=== PATIENT | male | born 1945 | race Caucasian/White ===

== ENCOUNTER → 2017-03-23 | Outpatient (CLI) | payer MEDICARE ==
[~2017-03-23] MED LIST: CASO1TAB PO; CIPR500S PO; LEVA750T PO; LUPRON; MAPA325T2 PO; MULT1TAB9 PO; OXYC-517 PO; PERCOCET PO; SMZ-800T PO; STOO100C PO; TUMS500C PO; TYLE650T35 PO
== END ==
LOC: M SMT 08:19
PROVIDERS: ATTEND Urology
DX: C61 Malignant neoplasm of prostate (principal)

== ENCOUNTER → 2017-09-21 | Outpatient (CLI) | payer MEDICARE ==
[~2017-09-21] MED LIST changes: -LEVA750T PO; +LEVA750T7 PO; -SMZ-800T PO; +SULF1TAB23 PO
== END ==
LOC: M SMT 08:33
PROVIDERS: ATTEND Nurse Practitioner Women's Health
DX: C61 Malignant neoplasm of prostate (principal)

== ENCOUNTER 2017-10-09 20:38 | Emergency (ER) | payer MEDICARE ==
[~2017-10-09] VITALS: Ht 170.2 cm; Wt 81.8 kg
[2017-10-09] MEDS ORDERED: IBUP-1114 PO (20:52)
[2017-10-09 22:33] VITALS: BP 145/84
--- NOTE | 2017-10-10 20:54 | REP ---
Left rib series: Five views. History: Pain after fall. Comparison chest x-ray August 11, 2016. Findings: Today's PA chest radiograph again demonstrates the two previously noted pulmonary nodules, unchanged from the July 2016 prior study. These are in the right lower and left upper lung field. There is another stable smaller nodule in the left base. Heart is not enlarged. Mediastinum is not widened. The aorta somewhat tortuous. There is no evidence of pneumothorax or hydrothorax on either side. Mediastinum is not widened. Multiple views of the left rib cage show no evidence of acute rib fracture or bony destructive lesion. There is left glenohumeral osteoarthritis and degenerative change in the region of the rotator cuff . There is an old healed fracture of the left posterior 9th rib unchanged. Impression: No acute rib fracture or bony destructive lesion. Multiple stable granulomatous nodules in the lung bagley. 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 Signed by Jeovanny Rogers MD 10/11/2017 08:08 A
== END 2017-10-09 22:39 | disposition home or self-care (01) ==
LOC: M ED 20:38
DX: S20.212A Contusion of left front wall of thorax, initial encounter (principal); W00.0XXA Fall on same level due to ice and snow, initial encounter; Y92.018 Other place in single-family (private) house as the place of occurrence of the external cause; Y93.89 Activity, other specified; Y99.8 Other external cause status; Z85.118 Personal history of other malignant neoplasm of bronchus and lung; Z88.0 Allergy status to penicillin

== ENCOUNTER → 2018-04-30 | Outpatient (CLI) | payer MEDICARE | LOC: M SMT 08:01 | DX: Z85.46 Personal history of malignant neoplasm of prostate (principal) | CPT/HCPCS: 84153 ==

== ENCOUNTER 2018-12-10 09:22 | Day surgery (SDC) | payer MEDICAID, MEDICARE ==
[~2018-12-10] VITALS: Ht 170.2 cm; Wt 78.0 kg
[~2018-12-10 09:22] MED LIST changes: -CASO1TAB PO; +CASO50TA5 PO; +IBUP-1114 PO; -SULF1TAB23 PO; +SULF1TAB93 PO
[2018-12-10] MEDS ORDERED: LIDOCAINE 2% INJ 100 MG/5 ML SDV (FOR ANES.) As Ordered ONE (10:29)
[2018-12-10] MEDS ORDERED: PROPOFOL 200 MG/20 ML VIAL As Ordered ONE (10:29)
[2018-12-10] MEDS ORDERED: NS 1,000 ML IV ONE (10:30)
--- NOTE | 2018-12-10 12:51 | ROOR ---
Patient Name: Ciro Maurer Procedure Date: 12/10/2018 11:58 AM Date of : 1945 Age: 73 Room: [facility] Gender: Male Note Status: Finalized Procedure: Colonoscopy Indications: Hematochezia Providers: Carl NEIL MD Referring MD: TIERA PACK MD Requesting Provider: Medicines: Monitored Anesthesia Care Complications: No immediate complications. Procedure: Pre-Anesthesia Assessment: - The heart rate, respiratory rate, oxygen saturations, blood pressure, adequacy of pulmonary ventilation, and response to care were monitored throughout the procedure. The Colonoscope was introduced through the anus and advanced to the terminal ileum, with identification of the appendiceal orifice and IC valve. The colonoscopy was performed without difficulty. The patient tolerated the procedure well. The quality of the bowel preparation was good. Findings: The perianal and digital rectal examinations were normal. A fungating partially obstructing large mass was found in the recto-sigmoid colon. The mass was circumferential. The mass measured five cm in length. This was biopsied with a cold forceps for histology. Two sessile polyps were found in the splenic flexure and ascending colon. The polyps were 5 to 7 mm in size. These polyps were removed with a cold snare. Resection and retrieval were complete. Internal hemorrhoids were found during retroflexion. The hemorrhoids were moderate. The exam was otherwise without abnormality on direct and retroflexion views. Impression: - Malignant appearing, partially obstructing tumor in the recto-sigmoid colon. (@ 18 to 23 cm from verge). Biopsied. - Two 5 to 7 mm polyps at the splenic flexure and in the ascending colon, removed with a cold snare. Resected and retrieved. - Internal hemorrhoids. Recommendation: - Await pathology results. - Refer to a surgeon at appointment to be scheduled. - Perform CT scan (computed tomography) of the abdomen with contrast at appointment to be scheduled. - My office will call you in the next few days to set you up for this study/exam. Carl Neil MD Carl NEIL MD 12/10/2018 12:50:37 PM This report has been signed electronically. Number of Addenda: 0 Note Initiated On: 12/10/2018 11:58 AM Estimated Blood Loss: Estimated blood loss: none.
[2018-12-10 13:15] VITALS: BP 142/82
== END 2018-12-10 13:26 | disposition home or self-care (01) ==
LOC: M OPP 09:22
PROVIDERS: ATTEND Internal Medicine Gastroenterology
DX: D49.0 Neoplasm of unspecified behavior of digestive system (principal); K56.690 Other partial intestinal obstruction; D12.3 Benign neoplasm of transverse colon; D12.2 Benign neoplasm of ascending colon; K64.8 Other hemorrhoids; K92.1 Melena; Z85.46 Personal history of malignant neoplasm of prostate; Z88.0 Allergy status to penicillin

== ENCOUNTER → 2018-12-16 | Outpatient (CLI) | payer MEDICARE ==
[~2018-12-16] MED LIST changes: +GASTROGRAFIN SOLUTION 30ML (Q9963) As Ordered ONE; +ISOVUE-370 76% 100ML VIAL (Q9967) As Ordered ONE
--- NOTE | 2018-12-16 18:27 | REP ---
Clinical: Rectosigmoid neoplasm. Technique: Axial contrast enhanced images from the lung bases to the pubic symphysis using oral (per protocol) and 100 ml Isovue 370 intravenous contrast material with precontrast and delayed images of the abdomen as well as coronal and sagittal re-formations. Comparison: 07/09/2014. Findings: Evaluation of the enteric system demonstrates a short length of circumferential mucosal thickening at the rectosigmoid junction with overhanging edges suggesting area of malignancy (images [id number]). Few adjacent lymph nodes are identified measuring up to 8.4 mm diameter and are nonspecific. No ascites. No further adenopathy appreciated. Scattered colonic diverticula are appreciated. There is no evidence for bowel obstruction. Liver, spleen, pancreas, gallbladder, and bilateral adrenal glands are normal. The kidneys demonstrate age-related cortical atrophic changes without perinephric stranding or hydroureteronephrosis. Incidental 1 cm right lateral cortical cyst is suggested (image 47). Pelvis demonstrates normal bladder and evidence for prior prostate surgery. Implanted penile device noted. Skeletal structures demonstrate osteopenia and degenerative changes without focal osseous abnormality. Lung bases demonstrate few scattered calcified granulomata. No effusion, consolidation, soft tissue nodule or mass lesion appreciated to suggest pulmonary metastatic disease. Impression: 1. Short segment of mucosal thickening involving the rectosigmoid consistent with neoplasm as per history. Few adjacent lymph nodes measure up to 8.4 mm and are nonspecific. 2. Colonic diverticulosis without acute diverticulitis. 3. Kidneys demonstrate cortical atrophic changes and suspected 1 cm right renal cyst which may be followed by ultrasound. 4. No further acute abdominopelvic pathology appreciated. Electronically Signed by Chente Yu MD 12/16/2018 06:18 P
== END ==
LOC: M RAD 16:26
PROVIDERS: ATTEND Internal Medicine Gastroenterology
DX: C19 Malignant neoplasm of rectosigmoid junction (principal); K57.90 Diverticulosis of intestine, part unspecified, without perforation or abscess without bleeding
CPT/HCPCS: 36415; 74178; 82378; Q9963; Q9967

== ENCOUNTER → 2018-12-16 | Outpatient (CLI) | payer MEDICARE ==
[~2018-12-16] MED LIST changes: -GASTROGRAFIN SOLUTION 30ML (Q9963) As Ordered ONE; -ISOVUE-370 76% 100ML VIAL (Q9967) As Ordered ONE
== END ==
LOC: M LAB 10:33
PROVIDERS: ATTEND Surgery
DX: C19 Malignant neoplasm of rectosigmoid junction (principal)

== ENCOUNTER 2019-01-07 06:07 | Inpatient (IN) | payer MEDICARE ==
--- NOTE | 2019-01-06 20:44 | HPE ---
DATE OF SCHEDULED ADMISSION: 01/07/2019 ADMISSION DIAGNOSIS: Rectosigmoid carcinoma. HISTORY OF PRESENT ILLNESS: The patient is a pleasant 73-year-old ramirez who had apparently noted some bloody and mucousy bowel movements for about 4 months. He denied any abdominal pain or rectal pain. He underwent a colonoscopy by Dr. Garcia on December 10, 2018. He was found to have what was described as a fungating, partially obstructing large mass in the rectosigmoid colon, estimated to be at 18-23 cm from the anal verge. The mass was reportedly circumferential. The mass was biopsied and revealed moderately differentiated colonic adenocarcinoma. The patient was referred to al for surgical treatment. A CEA was obtained on December 16, 2018 and was moderately elevated at 4.4 with a normal upper range of normal as less than 2.5. A CT scan of the abdomen and pelvis was also performed on December 16, 2018. This reveals a short segment of circumferential mucosal thickening at the rectosigmoid junction with overhanging edges suggesting malignancy. There were a few adjacent lymph nodes up to 8.4 mm in diameter that were felt to be nonspecific. There was no evidence of metastatic disease. Evidence of prior prostate surgery was noted as well as an implanted inflatable penile prosthesis. The patient and his were counseled regarding the treatment for upper rectal carcinoma. I have recommended that we proceed with a laparoscopic low anterior resection. The patient desires to proceed with the surgery and is being admitted on the morning of January 07, 2019 for a laparoscopic low anterior resection. MEDICATIONS: The patient (dictation cut off) Tums 500 mg tablets three daily. ALLERGIES: The patient has no reported allergies to medications. MEDICAL HISTORY: The patient had prostate cancer that was treated in 2013. He underwent a robotic radical prostatectomy. PAST SURGICAL HISTORY: The patient apparently underwent an endoscopic lung biopsy in 2013. He had right knee surgery in 1972 and had a right inguinal hernia repair in 1986. He had right shoulder surgery in 2004. His prostatectomy was in 2013, and he underwent placement of a penile implant in 2015. He has had ankle surgery on both ankles for fractures with the left treated in 1983 and the right treated in 1989. FAMILY HISTORY: His father had succumbed to prostate cancer, and his mother from lung cancer. He has a brother with prostate cancer and a sister who has diabetes and had anal cancer. 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 He is . He denies tobacco use or alcohol. REVIEW OF SYSTEMS: He has had no fever or chills. He has no history of chest pain or palpitations. There is no cough, wheezing or shortness of breath. He has had some rectal bleeding and has heartburn. He denies any constipation or diarrhea. There is no history of jaundice or hepatitis or pancreatitis. He denies any dysuria or hematuria, but he has had some mild occasional urinary leakage. He denies any bone or joint pains. He has no history of deep vein thrombosis (DVT) or pulmonary embolus. He has had no history of transient ischemic attack (TIA), stroke or severe headaches. He has no history of thyroid disease or diabetes. PHYSICAL EXAM: Reveals a pleasant older man. His height is recorded as 5 feet 7 inches with a weight of 82 kg for a body mass index (BMI) of approximately 28. Head, eyes, ears, nose and throat: Reveals anicteric sclerae. Mucous membranes are moist. The neck is without mass and there is no carotid bruit. Heart: Exam shows a regular rate and rhythm. The lungs are clear to auscultation bilaterally. The abdomen is generally flat. He has several small scars consistent with his prior robotic prostate surgery. A portion of his prosthesis is palpable low in the left lower quadrant in the subcutaneous tissues. Examination of the perineum shows no acute inflammation. There is one small external hemorrhoidal tag. Digital exam reveals no palpable lesions, and there is no evidence of anal stenosis. Skin: Is warm and dry. Extremities are without peripheral edema. IMPRESSION: 1. Moderately differentiated adenocarcinoma of the rectosigmoid. 2. History of prostate cancer treated by radical prostatectomy. PLAN: The patient is being admitted on January 07, 2019 for a laparoscopic low anterior resection. He is to perform a full mechanical and antibiotic bowel preparation utilizing neomycin and Flagyl on January 06, 2019. He was counseled regarding the indications for the procedure as well as the risks and possible benefits. Risks include but are not limited to bleeding, infection, scarring, adverse drug reaction, need for further surgery, injury of internal organs, anastomotic leak, and hernia. Both the patient and his were invited to ask questions at the time of his preoperative visit and these were answered to the best of my ability. The patient will be started on Entereg at the time of admission. He will receive intravenous antibiotics of cefotetan preoperatively. A Gracia catheter will be utilized during the surgery.
[2019-01-07] VITALS (7 sets, daily range): BP systolic 120–170; BP diastolic 67–84
[~2019-01-07] VITALS: Ht 170.2 cm; Wt 80.7 kg
[2019-01-07] MEDS ORDERED: ALVIMOPAN 12 MG CAPSULE (ENTEREG) PO ONE (06:30)
[2019-01-07] MEDS ORDERED: cefoTEtan DISODIUM 2 GM in D5W MINI-BAG PLUS 50 ML IV ONE (06:30)
[2019-01-07] MEDS ORDERED: METR-201 (06:41)
[2019-01-07] MEDS ORDERED: NEOM500T (06:41)
[2019-01-07] MEDS ORDERED: SUPRSOL2 (06:41)
[2019-01-07] MEDS ORDERED: LR 1,000 ML IV SCH ×2 (06:45→13:30)
[2019-01-07] MEDS ORDERED: ROCURONIUM BROMIDE 50 MG/5 ML VIAL As Ordered ONE ×2 (07:17→08:27)
[2019-01-07] MEDS ORDERED: PROPOFOL 200 MG/20 ML VIAL As Ordered ONE (07:17)
[2019-01-07] MEDS ORDERED: LIDOCAINE 2% INJ 100 MG/5 ML SDV (FOR ANES.) As Ordered ONE (07:17)
[2019-01-07] MEDS ORDERED: BUPIVACAINE HCL 0.25% 30 ML VIAL As Ordered ONE (07:18)
[2019-01-07] MEDS ORDERED: fentaNYL 100 MCG/2 ML INJECTION (J3010) As Ordered ONE (07:18)
[2019-01-07] MEDS ORDERED: MIDAZOLAM INJ 2 MG/2 ML VIAL (J2250) As Ordered ONE (07:18)
[2019-01-07] MEDS ORDERED: dexameTHASONE 4 MG/ML 1ML VIAL (J1100) As Ordered ONE (07:54)
[2019-01-07] MEDS ORDERED: ACETAMINOPHEN 1000MG 100ML IV BTL (OFIRMEV) (J0131 PER 10MG) As Ordered ONE (07:54)
[2019-01-07] MEDS ORDERED: ePHEDrine SULFATE 25 MG/5 ML(5MG/ML) SYRINGE As Ordered ONE (08:09)
[2019-01-07] MEDS ORDERED: HYDROmorphone HCL 2 MG/ML 1ML VIAL (J1170) As Ordered ONE (08:26)
[2019-01-07] MEDS ORDERED: GLYCOPYRROLATE INJ 0.2 MG/ML 2 ML VIAL As Ordered ONE (08:30)
[2019-01-07] MEDS ORDERED: METOPROLOL 5 MG/5 ML VIAL As Ordered ONE (09:06)
[2019-01-07] MEDS ORDERED: ONDANSETRON 4MG/2ML VIAL (J2405) As Ordered ONE (11:43)
[2019-01-07] MEDS: LR 1,000 ML IV SCH ×2 (12:33→22:48)
[2019-01-07] MEDS ORDERED: ACETAMINOPHEN TAB 650MG DOSE (2X325MG) PO PRN (12:45)
[2019-01-07] MEDS ORDERED: MORPHINE 4 MG/ML 1ML VIAL/SYRINGE (J2270) IV PRN (12:45)
[2019-01-07] MEDS ORDERED: ONDANSETRON 4MG/2ML VIAL (J2405) IV PRN ×2 (12:45→13:30)
[2019-01-07] MEDS ORDERED: NORCO, ANEXSIA 5/325MG TABLET (HYDROcodone/ACETAMINOPHEN) PO PRN (12:45)
[2019-01-07] MEDS ORDERED: oxyCODONE 5MG TAB PO PRN (13:30)
[2019-01-07] MEDS ORDERED: HYDROMORPHONE HCL 0.5 MG/ 0.5 ML SYRINGE (J1170 PER 1) IV PRN (13:30)
[2019-01-07] MEDS ORDERED: fentaNYL 100 MCG/2 ML INJECTION (J3010) IV PRN (13:30)
[2019-01-07] MEDS: KETOROLAC 30 MG/ML VIAL (J1885) IV PRN (16:03)
[2019-01-07] MEDS: ALVIMOPAN 12 MG CAPSULE (ENTEREG) PO SCH (20:09)
[2019-01-07] MEDS: ENOXAPARIN 40 MG/0.4 ML SYRINGE (J1650) SC SCH (20:10)
[2019-01-08] VITALS (7 sets, daily range): BP systolic 135–161; BP diastolic 60–82
[2019-01-08 06:45] LABS: BASO % 0.2 % (0.0-1.0); EOS % 0.1 % (0.0-3.0); HEMATOCRIT 40.7 % (42.0-52.0); HEMOGLOBIN 13.6 g/dl (13.5-17.5); LYMPH # 1.2 10^3/uL (1.5-4.5); LYMPH % 12.4 % (24.0-44.0); MEAN CORPUSCULAR HEMOGLOBIN 30.6 pg (27.0-33.0); MEAN CORPUSCULAR HGB CONC 33.4 g/dl (32.0-36.5); MEAN CORPUSCULAR VOLUME 91.5 fl (80.0-96.0); MONO # 0.9 10^3/uL (0.0-0.8); MONO % 8.8 % (0.0-5.0); NEUTROPHILS # 7.8 10^3/uL (1.8-7.7); NEUTROPHILS % 78.2 % (36.0-66.0); PLATELET COUNT, AUTOMATED 263 10^3/uL (150-450); RED BLOOD COUNT 4.45 10^6/uL (4.30-6.10); WHITE BLOOD COUNT 9.9 10^3/uL (4.0-10.0)
[2019-01-08 07:07] LABS: BLOOD UREA NITROGEN 14 MG/DL (7-18); CALCIUM LEVEL 8.5 MG/DL (8.8-10.2); CARBON DIOXIDE LEVEL 26 MEQ/L (21-32); CHLORIDE LEVEL 107 MEQ/L (98-107); CREATININE FOR GFR 0.97 MG/DL (0.70-1.30); GLOMERULAR FILTRATION RATE > 60.0 (>42); GLUCOSE, FASTING 102 MG/DL (70-100); SODIUM LEVEL 139 MEQ/L (136-145)
--- NOTE | 2019-01-08 08:30 | RO ---
DATE OF PROCEDURE: 01/07/2019 PREOPERATIVE DIAGNOSIS: Rectosigmoid carcinoma. POSTOPERATIVE DIAGNOSIS: Rectosigmoid carcinoma. PROCEDURE PERFORMED: Laparoscopic low anterior resection with colorectal anastomosis. SURGEON: Dr. Jones DOZER OPERATOR: Dr. Martinez SECOND SOLAR ENERGY TECHNICIAN: Bahman Leo MS III ANESTHESIA: General. INDICATIONS FOR PROCEDURE: The patient is a 73-year-old man who underwent colonoscopy in November due to a history of blood and mucus in his stool for several months. He was found to have a large mass in the region of the rectosigmoid extending over approximately 5 cm and extending nearly circumferentially around the lumen of the bowel. Biopsies revealed moderately differentiated adenocarcinoma. He underwent a metastatic workup with CT scan which revealed no evidence of metastatic disease. The patient is now for a laparoscopic low anterior resection. OPERATIVE PROCEDURE: The patient was brought to the operating room and placed supine on the operating table. He was placed under general endotracheal anesthesia. A Gracia catheter was inserted. He was moved into a low lithotomy position with the lower extremities in padded leg holders. TEDS and sequentials were utilized. A digital rectal examination was performed which revealed no retained stool and no palpable mass. The patient's abdomen was clipped of hair and prepped and draped sterilely. Initial entry into the abdomen was with a Veress needle in the right lower quadrant just below the level of the umbilicus and about the midclavicular line. After positive hanging drop test the abdomen was insufflated with carbon dioxide gas and a 5-mm port was placed over the scope and this was advanced through the abdominal wall without difficulty. Initial examination showed a few adhesions of the sigmoid colon to the left lower quadrant abdominal wall and anterior abdominal wall. The liver was seen and appeared normal other than a single adhesion to the anterior abdominal wall. Visualized portions of the small bowel all appeared normal. There was no evidence of any peritoneal studding of tumor. An 11 mm trocar was placed just above the umbilicus along the midline. A second 5 mm trocar was placed in the right lower quadrant fairly low. The patient was tilted to a Trendelenburg position. The small bowel was elevated up out of the pelvis. There were remarkably few adhesions given his previous radical prostatectomy. As noted previously, there were some adhesions of the sigmoid colon along the lateral wall of the lower abdomen. These adhesions were dressed. Initially, freeing the colon. Care was taken to avoid the left ureter. The proximal sigmoid colon was fairly redundant and there appeared to be an excellent length of bowel for reconstitution of the bowel continuity. A few adhesions little in the pelvis along the left side of the sigmoid colon were divided. It was possible then to pull the sigmoid colon up out of the pelvis and identify the location of tumor at the rectus sigmoid area. A mass was identified by palpation of the colon using a grasper. There was no evidence of involvement of the surface of the colon. There was a slight puckering noted along one side. I selected a point for the proximal transection of the colon to leave an excellent proximal margin up above the tumor but also leaving adequate length of colon for an anastomosis low in the pelvis. The bowel was divided using an echelon stapler after the right lower quadrant 5 mm port was converted to a 12-mm port. Once the bowel was divided the mesentery was divided down to its base. Dissection then proceeded distally, elevating the colon away from the retroperitoneum through the appropriate plane for a mesorectal excision. The fourth trocar was placed in the left upper quadrant to allow an additional grasper for manipulation of the colon as the dissection proceeded. Dissection proceeded then across the sacral promontory and then down along the hollow of the sacrum using primarily dissection with the harmonic scalpel. Dissection was continued down past the level of the tumor at least an additional 5-6 cm. The dissection was then carried up to the posterior wall of the rectum and after the wall had been adequately exposed the rectum was transected with two firings of the 60 cm echelon stapler with a green loads. The specimen was set aside for later removal. Some fibrofatty tissue at the posterior aspect of the rectal staple line was then dissected away to better expose the wall of the rectum. A few remaining attachments of the proximal colon were freed and it was confirmed that the proximal end of the colon would readily reach the rectal stump without any tension. An approximately 6-7 cm midline incision was made beginning at the 11 mm trocar site extending inferiorly around the right side of the umbilicus. The abdomen was deflated. A medium Mobius retractor was inserted. The colon specimen was removed. By palpation there is clearly a 4-5 cm long mass. There appeared to be in excellent mesorectal excision. There was 5-6 cm of distal rectal margin and approximately 15 cm of colon proximal to the tumor. There were no definite nodes palpable within the mesorectum. The specimen was sent for permanent pathology. The end of the sigmoid colon was then delivered through the abdominal wound. The staple line was removed. A 29-mm EEA stapler anvil was inserted into the end of the bowel and held in place with a pursestring suture of 2-0 Prolene. The end of the bowel was irrigated and then reduced back into the abdomen. The surgical team changed gown and gloves at this point and the midline incision was closed with interrupted simple sutures of #1 Vicryl. The skin and subcutaneous tissues were packed open with saline moistened gauze. The abdomen was then reinflated. The anvil of the stapler was grasped with the anvil grasper. The patient was repositioned into a deep head down position and the small bowel was removed from the pelvis. Dr. Martinez then went down to the perineum and initially advanced and EEA sizer into the rectum and then the stapler was advanced into the rectum and advanced to the level of the staple line. The post of the stapler was advanced just adjacent to the staple line at about at the midpoint. The anvil was attached and the stapler was then closed and fired and removed. Two intact doughnuts of tissue were recovered from the stapler. Dr. Martinez then returned to the abdomen and I proceeded to the perineum. The sigmoid colon was clamped with a bowel clamp and the deep pelvis was filled with saline. I inserted a colonoscope into the anus and advanced this to the level of the anastomosis. Air was insufflated and no air bubbles were seen leaking from the area of the anastomosis. I advanced the scope above the anastomosis and the bowel appeared healthy and viable with no bleeding at the staple line. I would estimate the staple line lay at approximately 10 cm above the anal verge. The colonoscope was removed. The patient was returned to a flat position. The irrigation was removed from the abdomen as thoroughly as possible. The 12-mm port in the right lower quadrant was removed and the peritoneum was closed using an Endoclose device with a 0 Vicryl. The two remaining 5 mm ports were used to vent the gas from the abdomen and these were then removed. The midline incision was approximated with some buried sutures of 3-0 Vicryl. The skin edges and all wounds were then approximated with simple or running sutures of 4-0 Vicryl and Steri-Strips. Light dressings were applied. The patient tolerated the procedure well without apparent complication. His Gracia catheter was removed in the operating room. He was awakened in the operating room, extubated and moved to the recovery room in stable condition.
[2019-01-08] MEDS: ALVIMOPAN 12 MG CAPSULE (ENTEREG) PO SCH ×2 (09:18→20:51)
[2019-01-08] MEDS: LR 1,000 ML IV SCH (09:18)
[2019-01-08] MEDS: ENOXAPARIN 40 MG/0.4 ML SYRINGE (J1650) SC SCH (20:52)
[2019-01-08] MEDS: KETOROLAC 30 MG/ML VIAL (J1885) IV PRN (22:45)
[2019-01-09] VITALS (7 sets, daily range): BP systolic 130–162; BP diastolic 71–94
[2019-01-09] MEDS: ALVIMOPAN 12 MG CAPSULE (ENTEREG) PO SCH ×2 (08:08→22:21)
--- NOTE | 2019-01-09 16:00 | IPN ---
DATE: 01/08/2019 HISTORY: Patient is postoperative day #1 from a laparoscopic low anterior resection for a rectosigmoid carcinoma. He has been taking some clear liquids since surgery. He is up in a chair at the time of this bedside visit. He has some abdominal soreness with movement, but otherwise has little discomfort. He denies any nausea or vomiting. He has not reported any flatus or bowel movement. He does report that he is voiding well. VITAL SIGNS: Show that his temperature has been within normal limits since surgery. His pulse has been running in the 50s to 60s. Blood pressure is good. INTAKE AND OUTPUT: Shows that he had 670 mL of oral intake yesterday. His voids have been recorded but not measured unfortunately. He appears to be taking adequate intake this morning based on the description of his breakfast intake. PHYSICAL EXAMINATION: Patient appears comfortable sitting up in a chair. He is alert and oriented. Heart exam shows a regular rhythm and the lungs are clear. Abdominal exam shows that his dressings are dry and clean. He has bowel sounds present on auscultation. LABORATORY STUDIES: Show that he had a CBC with a white count of 10, hemoglobin of 14, hematocrit of 41 and a platelet count of 263,000. His differential count showed 78% neutrophils, 12% lymphocytes and 9% monocytes. Chemistry profile showed normal electrolytes, BUN and creatinine with a glucose of 102. IMPRESSION: Patient is doing very well on postop day #1 from his colectomy. He has not had any return of bowel function but does have active bowel sounds and is tolerating clear liquids. PLAN: Patient will be advanced to a regular diet. I will saline lock his IV at this point as he appears to be taking adequate intake. We will continue to monitor his progress and I would anticipate that he would be ready for discharge in approximately 2 days. FLORENCE
--- NOTE | 2019-01-09 16:04 | IPN ---
DATE: 01/09/2019 HISTORY: The patient is now postoperative day number two from a laparoscopic low anterior resection for carcinoma. He has been tolerating regular food since yesterday. He has noted some flatus but has not yet had a bowel movement. He continues to void without difficulty. He has very little discomfort. He has been up ambulating in the hallway with his spouse. VITAL SIGNS: Show that he has been afebrile. Pulse remains in the high 50s to low 70s. Blood pressure is good. Intake and output shows that yesterday he had 2000 mL in with seven voids recorded but these were not measured. PHYSICAL EXAMINATION: Shows a pleasant man sitting up in the bedside chair. He is alert and oriented. Heart and lung examinations are unremarkable. The abdomen shows active bowel sounds. He has a small amount of blood staining on one or two of his dressings but this is minimal. The abdomen is soft and without any significant tenderness. IMPRESSION: The patient is doing very well postoperative day number two. He is tolerating a regular diet. He has had some flatus but no stool yet. PLAN: The patient was counseled that he is likely to have diarrhea and perhaps less bowel control once his bowel function returns. He will remain on his regular diet. He is encouraged to be up ambulating. We will continue to monitor his progress and I anticipate that he may be ready for discharge tomorrow or certainly by the following day. FLORENCE
[2019-01-09] MEDS: ENOXAPARIN 40 MG/0.4 ML SYRINGE (J1650) SC SCH (22:21)
[2019-01-10 02:00] VITALS: BP 154/89
[2019-01-10 06:00] VITALS: BP 158/90
[2019-01-10] MEDS: ALVIMOPAN 12 MG CAPSULE (ENTEREG) PO SCH (09:58)
== END 2019-01-10 11:58 | disposition home or self-care (01) | DRG 331 ==
LOC: M OR 06:07 → M MSPAV 13:36
PROVIDERS: ADMIT Surgery; ATTEND Surgery
PROC: 0DBP4ZZ Excision of Rectum, Percutaneous Endoscopic Approach (ICD-10-PCS; 2019-01-07)
PROC: 0DBN4ZZ Excision of Sigmoid Colon, Percutaneous Endoscopic Approach (ICD-10-PCS; principal; 2019-01-07 07:30)
DX: C19 Malignant neoplasm of rectosigmoid junction (principal); Z85.46 Personal history of malignant neoplasm of prostate

== ENCOUNTER → 2019-01-24 | Outpatient (CLI) | payer MEDICARE ==
[~2019-01-24] MED LIST changes: +METR-265; +NEOM500T; +SUPRSOL2
== END ==
LOC: M SMT 09:12
PROVIDERS: ATTEND Urology
DX: C61 Malignant neoplasm of prostate (principal)

== ENCOUNTER → 2019-04-30 | Outpatient (CLI) | payer MEDICARE ==
[~2019-04-30] MED LIST changes: +LUPR45IN IM; +MM S100C PO; -STOO100C PO
== END ==
LOC: M SMT 08:37
PROVIDERS: ATTEND Urology
DX: R97.21 Rising PSA following treatment for malignant neoplasm of prostate (principal)

== ENCOUNTER → 2019-08-01 | Outpatient (REF) | payer MEDICARE | LOC: M LAB REF 09:54 | PROVIDERS: ATTEND Urology | DX: R97.21 Rising PSA following treatment for malignant neoplasm of prostate (principal) ==

== ENCOUNTER → 2019-08-04 | Outpatient (CLI) | payer MEDICARE ==
[~2019-08-04] MED LIST changes: +GASTROGRAFIN SOLUTION 30ML (Q9963) As Ordered ONE; +ISOVUE-370 76% 100ML VIAL (Q9967) As Ordered ONE
--- NOTE | 2019-08-04 15:39 | REP ---
REASON FOR EXAM: History of colon cancer. Latest prior chest CT for comparison is 02/18/2016. CONTRAST: 100 mL Isovue 370. There is no mediastinal or hilar adenopathy. There are no pleural or pericardial effusions. The images osseous structures are within normal limits for the patient's age. Evaluation of the lung bagley shows an incidental calcified granuloma in the right lower lobe and tiny unchanged 3 mm size pleural based nodule in the right middle lobe. Curvilinear densities are also seen in the lung bases and inferior right middle lobe and all essentially unchanged. There is a stable left lower lobe calcified granuloma. This too is incidental. In the anterobasal segment of the left lower lobe there is a calcified granuloma previously, this nodule is noncalcified. There is a calcified granuloma in the left upper lobe and again, this previously was noncalcified. There are no new abnormal nodules, mass, or opacities. IMPRESSION: Chronic lung bagley changes and other findings as described above. Electronically Signed by Yovany Lizama DO 08/04/2019 04:05 P
--- NOTE | 2019-08-04 18:19 | REP ---
REASON: History of colon carcinoma. The latest prior for comparison is 07/16/2019. CONTRAST: 100 mL Isovue-370. For description of the lung bases see the CT examination of the chest report made the same day. The liver, gallbladder, spleen, pancreas, adrenal glands and kidneys are essentially unchanged. Note is again made of a stable pancreatic cyst which has been stable as far back as the CT of the abdomen of 07/09/2014 are also reviewed. There are tiny renal cortical cysts status quo. The renal cortex is somewhat thinned bilaterally but unchanged from the latest prior. No enhancing hepatic lesions have developed. The abdominal aorta and paraaortic regions are within normal limits. The bowel loops and their mesenteries are within normal limits. There is no intraabdominal mass or adenopathy. There is no free fluid or free air. CT PELVIS: A reservoir for a penile pump is seen in left anterior abdomen status quo. There is no free fluid or free air. Postoperative changes are seen involving the sigmoid colon. There is no evidence of a pelvis mass or adenopathy. Bone window technique throughout the examination shows marked chronic spinal degenerative changes and bilateral sacroiliac joint degenerative changes along with moderate bilateral hip degenerative changes all in a stable appearance compared to the latest prior. IMPRESSION:There is no evidence of acute intraabdominal or intrapelvic disease. Chronic changes and other findings as described above. Electronically Signed by Yovany Lizama DO 08/05/2019 02:13 P
== END ==
LOC: M RAD 11:07
PROVIDERS: ATTEND Internal Medicine Medical Oncology
DX: C61 Malignant neoplasm of prostate (principal)
CPT/HCPCS: 71260; 74177; Q9963; Q9967

== ENCOUNTER 2019-10-19 15:52 | Emergency (ER) | payer MEDICARE ==
[~2019-10-19] VITALS: Ht 170.2 cm; Wt 87.1 kg
[~2019-10-19 15:52] MED LIST changes: -GASTROGRAFIN SOLUTION 30ML (Q9963) As Ordered ONE; -ISOVUE-370 76% 100ML VIAL (Q9967) As Ordered ONE
[2019-10-19 16:58] LABS: BASO # 0.1 10^3/uL (0.0-0.2); BASO % 0.7 % (0.0-1.0); EOS # 0.1 10^3/uL (0.0-0.5); EOS % 1.1 % (0.0-3.0); HEMATOCRIT 44.5 % (42.0-52.0); HEMOGLOBIN 14.6 g/dl (13.5-17.5); LYMPH # 1.5 10^3/uL (1.5-5.0); MEAN CORPUSCULAR HEMOGLOBIN 30.8 pg (27.0-33.0); MEAN CORPUSCULAR HGB CONC 32.8 g/dl (32.0-36.5); MEAN CORPUSCULAR VOLUME 93.9 fl (80.0-96.0); NEUTROPHILS # 6.8 10^3/uL (1.5-8.5); NEUTROPHILS % 71.9 % (36.0-66.0); PLATELET COUNT, AUTOMATED 298 10^3/uL (150-450); RED BLOOD COUNT 4.74 10^6/uL (4.30-6.10); WHITE BLOOD COUNT 9.5 10^3/uL (4.0-10.0)
[2019-10-19 17:18] LABS: BLOOD UREA NITROGEN 20 MG/DL (7-18); CARBON DIOXIDE LEVEL 27 MEQ/L (21-32); CHLORIDE LEVEL 106 MEQ/L (98-107); CREATININE FOR GFR 0.91 MG/DL (0.70-1.30); GLOMERULAR FILTRATION RATE > 60.0 (>42); GLUCOSE, FASTING 84 MG/DL (70-100); POTASSIUM SERUM 3.9 MEQ/L (3.5-5.1); SODIUM LEVEL 141 MEQ/L (136-145); URIC ACID 3.7 MG/DL (3.5-7.2)
[2019-10-19 17:26] LABS: INFLUENZA A AMPLIFICATION NEGATIVE (NEGATIVE); INFLUENZA B AMPLIFICATION NEGATIVE (NEGATIVE)
[2019-10-19 18:34] VITALS: BP 151/79
--- NOTE | 2019-10-19 18:45 | REP ---
Clinical: Chest pain . Comparison: 08/11/2016 . Findings: The mediastinum and cardiac silhouette are stable and within normal limits for portable technique. The lung bagley are clear without acute consolidation, effusion, or pneumothorax. Skeletal structures are intact. Impression: No acute cardiopulmonary process appreciated. Electronically Signed by Chente Yu MD 10/19/2019 06:36 P
--- NOTE | 2019-10-19 18:47 | REP ---
Clinical: Pain. Technique: AP, lateral, bilateral oblique views of the right ankle. Comparison: None. Findings: Arthritic and post traumatic changes are appreciated including evidence for prior medial malleolus fixation. Small density adjacent to the medial malleolus likely related to the old injury although subtle avulsion fracture cannot be excluded and should be correlated with point of tenderness. No further acute fracture or dislocation appreciated. Impression: Arthritic and post traumatic degenerative changes. As above. Electronically Signed by Chente Yu MD 10/19/2019 06:38 P
== END 2019-10-19 18:51 | disposition home or self-care (01) ==
LOC: M ED 15:52
DX: J06.9 Acute upper respiratory infection, unspecified (principal); M25.571 Pain in right ankle and joints of right foot; M19.071 Primary osteoarthritis, right ankle and foot; I10 Essential (primary) hypertension; Z85.46 Personal history of malignant neoplasm of prostate; Z79.899 Other long term (current) drug therapy

== ENCOUNTER 2019-12-02 08:02 | Day surgery (SDC) | payer MEDICARE ==
[~2019-12-02] VITALS: Ht 165.1 cm; Wt 82.6 kg
[~2019-12-02 08:02] MED LIST changes: +ALEV220T22 PO; +MULTCAP PO; +NS 1,000 ML IV ONE
[2019-12-02] MEDS ORDERED: LIDOCAINE 2% INJ 100 MG/5 ML SDV (FOR ANES.) As Ordered ONE (09:35)
[2019-12-02] MEDS ORDERED: propofoL 200 MG/20 ML VIAL As Ordered ONE (09:35)
--- NOTE | 2019-12-02 10:11 | ROOR ---
Patient Name: Ciro Maurer Procedure Date: 12/02/2019 9:32 AM Date of : 1945 Age: 74 Room: [facility] Gender: Male Note Status: Finalized Procedure: Colonoscopy Indications: High risk colon cancer surveillance: Personal history of colon cancer, Last colonoscopy: December 2018, Patient had a low anterior resection for colorectal cancer in December 2018 Providers: Dain Jones MD Referring MD: TIERA PACK MD Requesting Provider: Medicines: Monitored Anesthesia Care Complications: No immediate complications. Procedure: Pre-Anesthesia Assessment: - Prior to the procedure, a History and Physical was performed, and patient medications and allergies were reviewed. The patient is competent. The risks and benefits of the procedure and the sedation options and risks were discussed with the patient. All questions were answered and informed consent was obtained. Patient identification and proposed procedure were verified by the physician, the nurse and the anesthesiologist in the procedure room. Mental Status Examination: alert and oriented. Prophylactic Antibiotics: The patient does not require prophylactic antibiotics. Prior Anticoagulants: The patient has taken no previous anticoagulant or antiplatelet agents. ASA Grade Assessment: II - A patient with mild systemic disease. After reviewing the risks and benefits, the patient was deemed in satisfactory condition to undergo the procedure. The anesthesia plan was to use monitored anesthesia care (MAC). Immediately prior to administration of medications, the patient was re-assessed for adequacy to receive sedatives. The heart rate, respiratory rate, oxygen saturations, blood pressure, adequacy of pulmonary ventilation, and response to care were monitored throughout the procedure. The physical status of the patient was re-assessed after the procedure. The Colonoscope was introduced through the anus and advanced to the cecum, identified by appendiceal orifice and ileocecal valve. The colonoscopy was performed without difficulty. The patient tolerated the procedure well. The quality of the bowel preparation was good. Findings: The perianal and digital rectal examinations were normal. There was evidence of a prior end-to-end colo-rectal anastomosis in the proximal rectum. This was patent and was characterized by healthy appearing mucosa. The anastomosis was traversed. The anastomosis was at 13-15 cm from the anal verge Impression: - Patent end-to-end colo-rectal anastomosis, characterized by healthy appearing mucosa. - No specimens collected. Recommendation: - Discharge patient to home. - Resume previous diet. - Continue present medications. - Repeat colonoscopy in 2 years for surveillance. Dain Jones MD Dain Jones MD 12/02/2019 10:11:08 AM Electronically signed by Dain Jones MD Number of Addenda: 0 Note Initiated On: 12/02/2019 9:32 AM Estimated Blood Loss: Estimated blood loss: none.
[2019-12-02 10:25] VITALS: BP 160/78
== END 2019-12-02 10:43 | disposition home or self-care (01) ==
LOC: M OPP 08:02
PROVIDERS: ATTEND Surgery
DX: Z85.038 Personal history of other malignant neoplasm of large intestine (principal); Z80.0 Family history of malignant neoplasm of digestive organs; Z98.0 Intestinal bypass and anastomosis status; Z08 Encounter for follow-up examination after completed treatment for malignant neoplasm; Z79.899 Other long term (current) drug therapy; Z85.46 Personal history of malignant neoplasm of prostate

== ENCOUNTER 2020-01-16 11:18 | Emergency (ER) | payer MEDICARE ==
[~2020-01-16] VITALS: Ht 165.1 cm; Wt 88.8 kg
[~2020-01-16 11:18] MED LIST changes: -NS 1,000 ML IV ONE
[2020-01-16 12:33] LABS: BASO # 0.1 10^3/uL (0.0-0.2); BASO % 0.8 % (0.0-1.0); EOS # 0.2 10^3/uL (0.0-0.5); HEMATOCRIT 43.7 % (42.0-52.0); HEMOGLOBIN 14.7 g/dl (13.5-17.5); LYMPH # 1.3 10^3/uL (1.5-5.0); LYMPH % 17.2 % (24.0-44.0); MEAN CORPUSCULAR HGB CONC 33.6 g/dl (32.0-36.5); MEAN CORPUSCULAR VOLUME 92.2 fl (80.0-96.0); MONO # 0.6 10^3/uL (0.0-0.8); MONO % 8.1 % (0.0-5.0); NEUTROPHILS # 5.5 10^3/uL (1.5-8.5); NEUTROPHILS % 70.6 % (36.0-66.0); PLATELET COUNT, AUTOMATED 292 10^3/uL (150-450); RED BLOOD COUNT 4.74 10^6/uL (4.30-6.10); WHITE BLOOD COUNT 7.8 10^3/uL (4.0-10.0)
[2020-01-16 12:51] LABS: ALBUMIN 3.5 GM/DL (3.2-5.2); ALT/SGPT 26 U/L (12-78); BILIRUBIN,DIRECT < 0.1 MG/DL (0.0-0.2); BILIRUBIN,TOTAL 0.5 MG/DL (0.2-1.0); BLOOD UREA NITROGEN 29 MG/DL (7-18); CALCIUM LEVEL 9.2 MG/DL (8.8-10.2); CARBON DIOXIDE LEVEL 29 MEQ/L (21-32); CHLORIDE LEVEL 105 MEQ/L (98-107); CK-MB VALUE MASS 3.6 NG/ML (<3.6); CPK CREATINE PHOSPHOKINASE 189 U/L (39-308); CREATININE FOR GFR 0.86 MG/DL (0.70-1.30); GLOMERULAR FILTRATION RATE > 60.0 (>42); GLUCOSE, FASTING 96 MG/DL (70-100); POTASSIUM SERUM 5.1 MEQ/L (3.5-5.1); SODIUM LEVEL 140 MEQ/L (136-145); TOTAL PROTEIN 7.1 GM/DL (6.4-8.2); TROPONIN I < 0.02 NG/ML (< 0.10)
[2020-01-16] MEDS ORDERED: ISOVUE-370 76% 100ML VIAL (Q9967) As Ordered ONE (13:08)
[2020-01-16 13:38] LABS: NT-PRO BNP 101 PG/ML (<125)
--- NOTE | 2020-01-16 13:46 | REP ---
REASON FOR EXAM: Chest pain. COMPARISON: Multiple, the latest 10/19/2019. FINDINGS: The technique utilized in obtaining the radiograph has magnified the cardiac silhouette and accentuated the interstitial markings. The superior mediastinal structures are midline. The cardiac silhouette is unremarkable in size, shape, and position. The diaphragmatic surfaces of the lungs are regular, and the costophrenic angles are clear. The pulmonary bagley are clear. The imaged osseous structures are intact. IMPRESSION: There is no acute cardiopulmonary disease. No significant change from the prior exam other than technique. It should be stated that the patient had a CT examination of the chest 08/04/2019 and all interested parties should review the report from that exam. Electronically Signed by Yovany Lizama DO 01/16/2020 03:12 P
--- NOTE | 2020-01-16 14:29 | REP ---
CT ANGIOGRAM CHEST: TECHNIQUE: Axial contrast enhanced images from the thoracic inlet to the upper abdomen using 100 mL Isovue 370 intravenous contrast material with multiplanar reformations. COMPARISON: CT 08/04/2019. There is no CT evidence of pulmonary embolism. There is no thoracic aortic aneurysm or dissection. Heart is not significantly enlarged. No mediastinal, hilar, or axillary adenopathy is seen. There is no pleural or pericardial effusion. There are bilateral calcified granulomas present. There are scattered fibroatelectatic change in the lung bases bilaterally. In the visualized upper abdomen there is a stable cyst in the pancreatic head 2.3 cm in diameter, unchanged dating back to a prior CT of the chest 07/17/2014. There are degenerative changes of the spine. IMPRESSION: No CT evidence of pulmonary embolism. Calcified granulomas bilaterally with bibasilar fibroatelectatic change. Stable pancreatic head cyst since 2013. Electronically Signed by Soren Gonsalez MD 01/16/2020 03:57 P
[2020-01-16 15:12] LABS: CK-MB VALUE MASS 3.1 NG/ML (<3.6); CPK CREATINE PHOSPHOKINASE 120 U/L (39-308); MB/CK RELATIVE INDEX 2.58 (< OR =4); TROPONIN I < 0.02 NG/ML (< 0.10)
[2020-01-16 16:00] VITALS: BP 160/79
[2020-01-16] MEDS ORDERED: HYDR12.55 PO (16:05)
--- NOTE | 2020-01-17 08:43 | ECGEPIP ---
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
--- NOTE | 2020-01-17 08:43 | ECGEPIP ---
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
== END 2020-01-16 16:18 | disposition home or self-care (01) ==
LOC: M ED 11:18
DX: S20.212A Contusion of left front wall of thorax, initial encounter (principal); R07.89 Other chest pain; R60.9 Edema, unspecified; W01.198A Fall on same level from slipping, tripping and stumbling with subsequent striking against other object, initial encounter; Y92.9 Unspecified place or not applicable; Y93.9 Activity, unspecified; Y99.9 Unspecified external cause status; Z85.46 Personal history of malignant neoplasm of prostate; Z85.038 Personal history of other malignant neoplasm of large intestine; Z79.899 Other long term (current) drug therapy
CPT/HCPCS: 71045; 71275; 80048; 80076; 82550; 82553; 83880; 84484; 85025; 93005; 93041; 94760; 99285; Q9967

== ENCOUNTER → 2020-06-29 | Outpatient (REF) | payer MEDICARE ==
[~2020-06-29] MED LIST changes: +ACET650T61 PO; +HYDR12.55 PO; -MAPA325T2 PO; +MAPA325T8 PO; +PERC5TAB12 PO; -TYLE650T35 PO; +XARE10TA PO
== END ==
LOC: M LAB REF 10:35
PROVIDERS: ATTEND Internal Medicine
DX: Z00.01 Encounter for general adult medical examination with abnormal findings (principal); R97.20 Elevated prostate specific antigen [PSA]

== ENCOUNTER → 2020-07-01 | Outpatient (CLI) | payer MEDICARE ==
[~2020-07-01] MED LIST changes: +GASTROGRAFIN SOLUTION 30ML (Q9963) As Ordered ONE; +ISOVUE-370 76% 100ML VIAL As Ordered ONE
--- NOTE | 2020-07-22 10:27 | REP ---
CONTRAST ENHANCED CHEST CT CLINICAL: Colon cancer surveillance. TECHNIQUE: Axial contrast enhanced images from the thoracic inlet to the upper abdomen using 100 mL Isovue-370 intravenous contrast material followed by CT of the abdomen and pelvis. Coronal and sagittal reformations obtained. COMPARISON: 08/04/2019. FINDINGS: The lung bagley are well-aerated and stable calcified granulomata are again identified bilaterally along with very small punctate noncalcified subpleural densities, which are unchanged as well. No acute consolidation, suspicious nodule, or mass lesion is appreciated. No pleural effusion. No pneumothorax. Tracheobronchial tree is patent. Evaluation of the mediastinum demonstrates a normal thoracic aorta, pulmonary vasculature, and heart/pericardium. Atherosclerotic changes to the coronary arteries noted. No axillary, hilar, or mediastinal adenopathy. Surrounding musculoskeletal structures are intact and without focal osseous abnormality. IMPRESSION: Stable granulomatous changes. No acute mediastinal or pleural parenchymal process. No evidence for metastatic disease. MTDD
--- NOTE | 2020-07-22 10:28 | REP ---
CONTRAST ENHANCED CT ABDOMEN AND PELVIS CLINICAL: Colon cancer. Follow-up surveillance. TECHNIQUE: Axial contrast enhanced images from the lung bases to the pubic symphysis using oral contrast (per protocol) and 100 mL Isovue-370 intravenous contrast material with coronal and sagittal reformations. COMPARISON: 08/04/2019. FINDINGS: Liver again demonstrates subcentimeter hypodensity in the left lobe, which remains stable. Spleen, gallbladder, and bilateral adrenal glands are normal. The kidneys demonstrate chronic cortical atrophy and stable 2 cm right renal cyst. The pancreas demonstrates stable 2 cm cyst in the proximal body, which remains stable. Evaluation of the enteric system is without obstruction or acute inflammatory process. There is evidence for prior resection and anastomosis at the level of the distal sigmoid colon, which is unchanged in appearance. Pelvis demonstrates normal bladder and findings to suggest prior prostate surgery. There is a reservoir for penile pump in the left anterior pelvic wall. Skeletal structures demonstrate chronic degenerative changes. No ascites. No free air. No adenopathy. Abdominal aorta without aneurysm or dissection. No obvious metastatic mass lesion. IMPRESSION: * No acute abdominopelvic pathology appreciated. No evidence for recurrence or metastasis. * Chronic stable changes including subcentimeter hepatic cyst, pancreatic cyst, age-related renal changes, and right renal cyst again noted. MTDD
== END ==
LOC: M RAD 11:25
PROVIDERS: ATTEND Internal Medicine Medical Oncology
DX: R91.8 Other nonspecific abnormal finding of lung field (principal); K76.89 Other specified diseases of liver; K86.2 Cyst of pancreas; N28.1 Cyst of kidney, acquired
CPT/HCPCS: 71260; 74177; Q9963; Q9967

== ENCOUNTER → 2020-07-16 | Outpatient (CLI) | payer MEDICARE ==
[~2020-07-16] MED LIST changes: -GASTROGRAFIN SOLUTION 30ML (Q9963) As Ordered ONE; -ISOVUE-370 76% 100ML VIAL As Ordered ONE
[2020-07-16 12:24] LABS: HEMATOCRIT 44.7 % (42.0-52.0); HEMOGLOBIN 14.9 g/dl (13.5-17.5); MEAN CORPUSCULAR HEMOGLOBIN 31.2 pg (27.0-33.0); MEAN CORPUSCULAR HGB CONC 33.3 g/dl (32.0-36.5); MEAN CORPUSCULAR VOLUME 93.7 fl (80.0-96.0); PLATELET COUNT, AUTOMATED 305 10^3/uL (150-450); RED BLOOD COUNT 4.77 10^6/uL (4.30-6.10); WHITE BLOOD COUNT 8.7 10^3/uL (4.0-10.0)
[2020-07-16 12:33] LABS: ALBUMIN 3.5 GM/DL (3.2-5.2); ALT/SGPT 25 U/L (12-78); BILIRUBIN,TOTAL 0.4 MG/DL (0.2-1.0); BLOOD UREA NITROGEN 26 MG/DL (7-18); CALCIUM LEVEL 9.3 MG/DL (8.8-10.2); CARBON DIOXIDE LEVEL 30 MEQ/L (21-32); CHLORIDE LEVEL 106 MEQ/L (98-107); CREATININE FOR GFR 0.97 MG/DL (0.70-1.30); GLOMERULAR FILTRATION RATE > 60.0 (>42); GLUCOSE, FASTING 96 MG/DL (70-100); INR 0.92; POTASSIUM SERUM 4.4 MEQ/L (3.5-5.1); PROTHROMBIN TIME 12.5 SECONDS (12.5-14.3); SODIUM LEVEL 141 MEQ/L (136-145); TOTAL PROTEIN 6.6 GM/DL (6.4-8.2)
[2020-07-16 13:39] LABS: ERYTHROCYTE SEDIMENTATION RATE 15 mm/hr (0-20)
--- NOTE | 2020-07-17 09:40 | ECGEPIP ---
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
--- NOTE | 2020-07-22 10:30 | REP ---
CHEST X-RAY: 2-VIEWS HISTORY: Osteoarthritis of the right knee. COMPARISON: Chest x-ray 01/16/2020. FINDINGS: There are granulomatous calcified pulmonary nodules bilaterally unchanged. The lungs are otherwise well-inflated and clear. Heart is not enlarged. The aorta is somewhat tortuous and calcific. There are degenerative changes in the thoracic spine as before. IMPRESSION: Old granulomatous calcifications. No acute disease. MTDD
== END ==
LOC: M LAB 11:32
PROVIDERS: ATTEND Orthopaedic Surgery
DX: Z01.818 Encounter for other preprocedural examination (principal); M17.11 Unilateral primary osteoarthritis, right knee; R94.31 Abnormal electrocardiogram [ECG] [EKG]; I45.19 Other right bundle-branch block

== ENCOUNTER → 2020-07-23 | Outpatient (CLI) | payer MEDICARE | LOC: M LABSMTC 10:04 | PROVIDERS: ATTEND Anesthesiology | DX: Z01.812 Encounter for preprocedural laboratory examination (principal); Z20.828 Contact with and (suspected) exposure to other viral communicable diseases | CPT/HCPCS: C9803; U0003 ==

== ENCOUNTER 2020-07-28 09:34 | Inpatient (IN) | payer MEDICARE ==
--- NOTE | 2020-07-26 11:31 | HPE ---
DATE OF ANTICIPATED ADMISSION: 07/28/2020 ATTENDING PHYSICIAN: Kwame Jane MD ADMITTING DIAGNOSIS: Osteoarthritis right knee. HISTORY: This is a pleasant, 75-year-old male patient with progressively worsening right knee pain and stiffness who has failed to improve with conservative management including injections in his knee and activity modifications. He has pain with weightbearing activities and activities of daily living. He has elected for surgery for his continued symptoms. He has been consented by Dr. Kwame Jane for a right total knee arthroplasty. X-rays notable for end-stage degenerative changes in the right knee. Medical optimization by Dr. Cristina not present for review today. ALLERGIES: No known drug allergies. CURRENT MEDICATIONS: - Tums 500 mg as needed - Eligard 45 mg once daily - daily multivitamins - Aleve [id number] We did discuss once again discontinuing his jako-pem-nurioot Aleve and any non- steroidal anti-inflammatory drugs (NSAIDs) 5 days prior to surgery to include aspirin. MEDICAL HISTORY: Includes: Prostate cancer, anxiety, and depression. SURGICAL HISTORY: Includes: Left ankle fracture, hernia repair, right shoulder decompression, prostate biopsy, prostate removal, colon resection. FAMILY HISTORY: Colon cancer, heart disease, cancer, elevated cholesterol. SOCIAL HISTORY: He does not smoke. He does not use alcohol. 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 Exam today reveals an alert male patient. He ambulates with a limping gait favoring his right knee. Exam of the right knee reveals his skin to be intact. No erythema, edema, or ecchymosis. The skin is intact around the knee. There is a well-healed prior surgical scar consistent with his history. He is able to flex to 110, extension is full. There is a small effusion on exam and no signs of infection around the knee. The right lower extremity is intact to light touch. No irritability with hip range of motion. Neck is supple without adenopathy or jugular venous distension (JVD). Lungs: Clear to auscultation without rales or wheeze. Heart: Regular rate and rhythm. Abdomen: Bowel sounds are present. PLAN: He is consented for a right total knee arthroplasty by Dr. Jane. DIAGNOSIS: Symptomatic osteoarthritis of the right knee. LABORATORY DATA: ProTime 12.5, INR 0.92, glucose 96, BUN 26, creatinine 0.97, sodium 141, potassium 4.4, ESR 15, WBC count 8.7, RBC count 4.7, hemoglobin 14.9, hematocrit 44.7. Chest x-ray is not present for review today. PLAN: We have reviewed his preoperative instructions and went over when to discontinue his non-steroidal anti-inflammatory drugs (NSAIDs) and when not to take NSAIDs, to include aspirin 5-7 days prior to surgery. Went over nothing by mouth and what nothing by mouth means. We talked about calling into the hospital 1 day prior, he has that phone number. He understands his pre- and postoperative instructions. He has a booklet that he has thoroughly reviewed. All of his questions are answered. He understands the reason for the COVID testing and once he is cleared with the COVID testing he needs to self- quarantine at home. FLORENCE
[~2020-07-28] VITALS: Ht 165.1 cm; Wt 88.9 kg
[~2020-07-28 09:34] MED LIST changes: +LR 1,000 ML IV ONE; -PERC5TAB12 PO; -XARE10TA PO; +ceFAZolin SOD 2 GM in IV 1 EA IV ONE
[2020-07-28] MEDS ORDERED: ePHEDrine INJ 50 MG/ML VIAL As Ordered ONE (10:50)
[2020-07-28] MEDS ORDERED: LIDOCAINE 2% 100MG/5ML SDV (FOR ANES.) As Ordered ONE (10:50)
[2020-07-28] MEDS ORDERED: ONDANSETRON 4MG/2ML VIAL As Ordered ONE (10:50)
[2020-07-28] MEDS ORDERED: MIDAZOLAM INJ 2MG/2ML VIAL (J2250 PER 1MG) As Ordered ONE ×2 (10:51→10:52)
[2020-07-28] MEDS ORDERED: propofoL 500 MG/50 ML VIAL As Ordered ONE (10:51)
[2020-07-28] MEDS ORDERED: KETAMINE HCL 200 MG/20 ML VIAL As Ordered ONE (10:52)
[2020-07-28] MEDS ORDERED: fentaNYL 100 MCG/2 ML INJECTION (J3010) As Ordered ONE (10:52)
[2020-07-28] MEDS ORDERED: ceFAZolin 1GM VIAL (J0690 PER 500MG) As Ordered ONE (10:54)
[2020-07-28] MEDS ORDERED: TRANEXAMIC ACID 100 MG/ML 10ML VIAL As Ordered ONE (10:55)
[2020-07-28] MEDS ORDERED: EPINEPHrine INJ 1 MG/ML 1ML AMP As Ordered ONE (10:55)
[2020-07-28] MEDS ORDERED: BUPIVACAINE LIPOSOME/PF 1.3% 20ML VIAL (13.3MG/ML)(EXPAREL)(C9290 PER1MG) As Ordered ONE (10:56)
[2020-07-28] MEDS: fentaNYL 100 MCG/2 ML INJECTION (J3010) IV SCH ×2 (11:18→11:23)
[2020-07-28] MEDS: MIDAZOLAM INJ 2MG/2ML VIAL (J2250 PER 1MG) IV SCH ×2 (11:18→11:23)
[2020-07-28] MEDS ORDERED: ROPIvacaine 0.5% 30ML INJECTION (J2795 PER 1MG) ONE (13:52)
[2020-07-28] MEDS ORDERED: LIDOCAINE 1% MDV 20ML VIAL ONE (13:52)
[2020-07-28] MEDS ORDERED: dexameTHASONE 10MG/1ML VIAL PRES.FREE (J1100 PER 1MG) ONE (13:52)
[2020-07-28] MEDS ORDERED: oxyCODONE 5MG TAB As Ordered ONE (14:20)
[2020-07-28] MEDS ORDERED: ACETAMINOPHEN TAB 650MG DOSE (2X325MG) PO PRN (14:30)
[2020-07-28] MEDS ORDERED: ONDANSETRON 4MG/2ML VIAL IV PRN ×2 (14:30)
[2020-07-28] MEDS ORDERED: PERCOCET 5MG/325MG TAB PO PRN (14:30)
[2020-07-28] MEDS ORDERED: MORPHINE 4 MG/ML 1ML VIAL/SYRINGE (J2270) IV PRN ×2 (14:30)
[2020-07-28] MEDS ORDERED: oxyCODONE 5MG TAB PO PRN (14:30)
[2020-07-28] MEDS ORDERED: LR 1,000 ML IV SCH ×2 (14:30)
[2020-07-28] MEDS ORDERED: fentaNYL 100 MCG/2 ML INJECTION (J3010) IV PRN (14:30)
[2020-07-28 16:00] VITALS: BP 144/86
--- NOTE | 2020-07-28 16:06 | HPEPDOC ---
General Date of Admission Jul 28, 2020 at 09:34 Date of Service: Jul 28, 2020 Chief Complaint The patient is a 75-year-old male admitted with a reason for visit of Osteoarthritis Of Right Knee. Source: Patient History of Present Illness Consultation Report. Consultation requested by Dr Jane HPI: 75-year-old male patient with progressively worsening right knee pain and stiffness who has failed to improve with conservative management including injections in his knee and activity modifications was admitted for elective right total knee replacement. Hospitalist was consulted for management of medical comorbidities. Seen in PACU. Just out of the OR. Denies any pain at present. Home Medications Scheduled Calcium Carbonate (Tums) 200 Mg Tab.chew, 2 TAB PO QIDP, (Reported) Multivitamin (Multivitamins) 1 Each Capsule, 1 CAP PO DAILY, (Reported) Naproxen Sodium (Aleve) 220 Mg Tablet, 220 MG PO BID, (Reported) Allergies Coded Allergies: No Known Allergies (Unverified , 07/21/20) Past Medical History Medical History Chronic urinary incontinence Prostate cancer, anxiety, and depression GERD Hard of Hearing. Surgical History Left ankle fracture surgery, hernia repair, right shoulder decompression, prostate biopsy, prostate removal, colon resection. Family History Colon cancer, heart disease Social History * Smoker: non-smoker Alcohol: Denies Drugs: denies A-FIB/CHADSVASC A-FIB History Current/History of A-Fib/PAF?: No Review of Systems Constitutional: Denies: Chills, Fever, Night Sweats Eyes: Denies: Pain, Vision change ENT: Denies: Head Aches, Ear Pain, Dysphagia Skin: Denies: Rash, Lesions, Breakdown Pulmonary: Denies: Dyspnea, Cough Cardiovascular: Denies: Chest Pain, Palpitations, Orthopnea, Paroxysmal Noc. Dyspnea, Lt Headedness Gastrointestinal: Denies: Nausea, Vomiting, Abdominal Pain, Diarrhea Genitourinary: Reports: Incontinence Hematologic: Denies: Bruising, Bleeding Excessively Physical Examination General Exam: Positive: Alert, Cooperative, No Acute Distress Eye Exam: Positive: PERRLA, Conjunctiva & lids normal, EOMI; Negative: Sclera icteric ENT Exam: Positive: Atraumatic, Mucous membr. moist/pink, Pharynx Normal Neck Exam: Positive: Supple; Negative: JVD, thyromegaly Chest Exam: Positive: Clear to auscultation, Normal air movement Heart Exam: Positive: Bradycardic, Regular Rhythm, Normal S1, Normal S2; Negative: Murmurs, Rubs Telemetry: Positive: Sinus, Bradycardia Abdomen Exam: Positive: Normal bowel sounds, Soft; Negative: Tenderness, Hepatospenomegaly Extremity Exam: Positive: Normal pulses; Negative: Clubbing, Cyanosis, Edema Vital Signs Vital Signs Date Time Temp Pulse Resp B/P (MAP) Pulse Ox O2 Delivery O2 Flow Rate FiO2 07/28/20 12:00 69 18 144/87 (106) 100 Nasal Cannula 2 07/28/20 10:24 97.5 Assessment/Plan 75-year-old male patient with progressively worsening right knee pain and stiffness who has failed to improve with conservative management including injections in his knee and activity modifications was admitted for elective right total knee replacement. Hospitalist was consulted for management of medical comorbidities. S/p right total knee replacement pain control as per ortho, DVT prophylaxis as per ortho. PT/OT H/o prostatectomy for prostate cancer with chronic urinary incontinence. No other medical issues at present. Plan / VTE VTE Prophylaxis Ordered?: Yes LUIZ ALMANZA MD Jul 28, 2020 14:17
[2020-07-28 17:00] VITALS: BP 143/85
[2020-07-28 18:00] VITALS: BP 134/83
[2020-07-28 20:00] VITALS: BP 156/86
[2020-07-28] MEDS: ceFAZolin SOD 2 GM in IV 1 EA IV SCH (21:15)
[2020-07-28 22:00] VITALS: BP 146/81
[2020-07-29 02:00] VITALS: BP 133/80
[2020-07-29] MEDS: ceFAZolin SOD 2 GM in IV 1 EA IV SCH (04:41)
[2020-07-29 06:00] VITALS: BP 155/86
[2020-07-29] MEDS ORDERED: XARE10TA PO (06:53)
[2020-07-29] MEDS ORDERED: PERC5TAB12 PO (06:53)
[2020-07-29 07:40] LABS: HEMATOCRIT 37.1 % (42.0-52.0); HEMOGLOBIN 12.6 g/dl (13.5-17.5); MEAN CORPUSCULAR HEMOGLOBIN 31.6 pg (27.0-33.0); PLATELET COUNT, AUTOMATED 317 10^3/uL (150-450); RED BLOOD COUNT 3.99 10^6/uL (4.30-6.10)
[2020-07-29] MEDS ORDERED: MOM 30ML SUSPENSION UDC PO SCH (09:00)
[2020-07-29] MEDS ORDERED: MIRALAX *UNIT DOSE* 17GM PACKET PO SCH (09:00)
[2020-07-29 10:00] VITALS: BP 145/86
[2020-07-29] MEDS ORDERED: RIVAROXABAN 10 MG TAB (XARELTO) PO SCH (18:00)
--- NOTE | 2020-07-30 11:06 | IPN ---
DATE: 07/28/2020 Patient is seen and examined. He wishes to go ahead with a right knee arthroplasty. He understands the nature of this, the risks of bleeding, infection, damage to nerves, vessels, persistent pain, wear, loosening, blood clots, medical problems, , among others. Preoperative clearance was obtained. We are planning on proceeding with a right knee arthroplasty. FLORENCE
--- NOTE | 2020-07-30 11:08 | RO ---
DATE OF OPERATION: 07/28/2020 PREOPERATIVE DIAGNOSIS: Right knee osteoarthritis. POSTOPERATIVE DIAGNOSIS: Right knee osteoarthritis. PROCEDURE: Right total knee arthroplasty using an Attune rotating platform, posterior stabilized size 5 femur, size 7 tibial tray, and a 10 polyethylene, 38 patellar button. SURGEON: Dr. Kwame Jane MD PLAN MANAGER: DAYTON Magana ANESTHESIA: Spinal. ESTIMATED BLOOD LOSS: Less than 50. COMPLICATIONS: None. DESCRIPTION OF PROCEDURE: Patient was taken to the operating room and placed in the supine position after spinal anesthesia was induced. The right lower extremity was prepped and draped in the usual sterile fashion. A time-out was performed. Tourniquet inflated. A longitudinal incision was made over the anterior aspect of the knee, and a medial parapatellar arthrotomy was performed per routine. Controlled hemostasis with a cautery. Everted the patella, flexed the knee up. I had done a medial release as well and used a canal-initiating reamer on the femoral side followed by the intramedullary guide set at 5 degrees of valgus, 9 mm cut. This was pinned in place. Then the distal femoral cut was made, but I did take an additional 2 mm because of the appearance of the cut and because he had a mild flexion contracture. I then sized the femur to be a 5. Drill holes were placed in the end of the femur, and the size 5 cutting block was secured. The remaining cuts were made, protecting soft tissues at all times. I then prepared the tibial surface. He had significant dishing of both medial and lateral tibial plateaus, so I ended up taking 6 mm off of the medial side, which seemed to be an appropriate size cut. The alignment guide was set. The pin holes were placed, and the external alignment guide was used to confirm the alignment. Proximal tibial cut was made. Removed the bone. I removed soft tissue and osteophytes from either side of the knee, and the posterior cruciate ligament (PCL) was essentially deficient at this point, so I elected to go with a posterior stabilize, which I had anticipated. The cutting block was secured to the femur, and the remaining three cuts were made, and the remaining PCL was removed with the cautery. Care was taken to protect soft tissues. I then used a spacer block and determined that a size 10 seemed to be the most appropriate and had excellent alignment and balance in flexion and extension. Tibial tray was prepared. It was sized to be a 7. It was drilled, broached, and the trial components were placed, and I was very pleased with the alignment position of the trial components. The size 10 polyethylene seemed to be appropriate. The patella was then free-hand cut, removing 7-8 mm of bone. I sized it to be a 38. The drill holes were placed in the patella and also in the femur, and the patella button was placed. This tracked very nicely. The sugar laboratory assistant prepared the bone cement. I removed the trial components, irrigated, injected the Exparel in the deep tissues, dried the bony surfaces, and then cemented in the components in the usual fashion, removing all excess bone cement, and placed the polyethylene. The wound was then irrigated after TXA was placed deep in the wound, and the deep layer was closed with interrupted #1 Vicryl suture and running Stratafix. I removed the patellar clamp once the cement had hardened. I put the knee through a range of motion. The patella tracked very nicely. There was no clicking or catching. The remainder of the wound was closed after final deep irrigation. I then closed the subcutaneous with 2-0 Vicryl and the skin with rishabh. Sterile dressing was applied. Tourniquet had been deflated when the cement hardened. The sugar laboratory assistant was instrumental in holding retractors and assisting in mixing the bone cement and assisting in wound closure. FLORENCE
--- NOTE | 2020-08-02 16:39 | REP ---
RIGHT KNEE SERIES: 3-VIEWS HISTORY: Status post total right knee. FINDINGS: Anterior skin rishabh are seen. Patellar, femoral, and tibial prosthetic components are well aligned with respect to each other and their lumbee bones. There is periarticular and intraarticular soft tissue gas. On the front radiograph, there are severe ossific densities at the medial joint line. IMPRESSION: Status post right knee arthroplasty. FLORENCE
--- NOTE | 2020-08-04 15:57 | DS ---
DATE OF ADMISSION: 07/28/2020 DATE OF DISCHARGE: 07/29/2020 ATTENDING PHYSICIAN: Dr. Kwame Jane ADMITTING DIAGNOSIS: Right knee osteoarthritis. OTHER DIAGNOSES: 1. History of prostate cancer. 2. Anxiety. 3. Depression. DISCHARGE DIAGNOSIS: Right knee osteoarthritis, status post right total knee arthroplasty. HISTORY: Patient is a 75-year-old male with progressively worsening right knee pain and stiffness. He failed to improve with conservative measures. He continued to have with weightbearing activities and activities of daily living. He consented for an elective right total knee arthroplasty with Dr. Jane for his continued symptoms. OPERATION PERFORMED: Right total knee arthroplasty. HOSPITAL COURSE: The patient underwent a right total knee arthroplasty under spinal anesthesia, which was uneventful. His hospital course was without complication, and he was up with physical therapy per their protocol, weightbearing as tolerated on the right lower extremity. Patient was discharged on oral pain medications and will resume his preoperative medications and diet. Patient will use his thromboembolic deterrent stockings and take his anticoagulant postoperatively to prevent deep venous thrombosis. Patient will followup in our office in 12-14 days for wound check and staple removal. He is encouraged to contact our office sooner if there is any increase in pain, redness, drainage, numbness or tingling in the extremity, fever greater than 101 degrees, or any other concerns. Please see medical record for additional details. FLORENCE
== END 2020-07-29 11:05 | disposition home or self-care (01) | DRG 470 ==
LOC: M OR 09:34 → M MS5PR 15:20
PROVIDERS: ADMIT Orthopaedic Surgery; ATTEND Orthopaedic Surgery
PROC: 0SRC0J9 Replacement of Right Knee Joint with Synthetic Substitute, Cemented, Open Approach (ICD-10-PCS; principal; 2020-07-28 11:45)
DX: M17.11 Unilateral primary osteoarthritis, right knee (principal); F41.9 Anxiety disorder, unspecified; F32.9 Major depressive disorder, single episode, unspecified; Z85.46 Personal history of malignant neoplasm of prostate; K21.9 Gastro-esophageal reflux disease without esophagitis

== ENCOUNTER 2021-03-18 13:34 | Observation (INO) | payer MEDICARE ==
[~2021-03-18] VITALS: Ht 165.1 cm; Wt 86.5 kg
[~2021-03-18 13:34] MED LIST changes: +ACET-897 PO; +BACTDSTA PO; -LR 1,000 ML IV ONE; +PERC5TAB12 PO; -SULF1TAB93 PO; +XARE10TA PO; -ceFAZolin SOD 2 GM in IV 1 EA IV ONE
[2021-03-18] MEDS ORDERED: NAPR220C23 PO (13:47)
--- NOTE | 2021-03-18 14:24 | REP ---
INDICATION: DYSPNEA/COUGH COMPARISON: 07/16/2020 TECHNIQUE: Portable AP view of the chest FINDINGS: The mediastinum and cardiac silhouette are stable and within normal limits for portable technique. The lung bagley are clear without acute consolidation, effusion, or pneumothorax. Stable subtle nodule in the periphery of the right lower lung zone and left lower lung zone. Skeletal structures are intact. IMPRESSION: No acute cardiopulmonary process appreciated. <Electronically signed by Chente Yu > 03/18/21 [id number]
[2021-03-18 14:51] LABS: VENOUS BASE EXCESS 0.1 (-2.0-2.0); VENOUS HCO3 26.2 MEQ/L (23.0-27.0); VENOUS O2 SATURATION 48.4 % (60.0-80.0); VENOUS PARTIAL PRESSURE O2 26.3 mmHg (30.0-50.0); VENOUS PH 7.355 UNITS (7.330-7.430); VENOUS STANDARD HCO3 23.3 MEQ/L; VENOUS TOTAL CO2 27.7 MEQ/L (24.0-28.0)
[2021-03-18 14:57] LABS: BASO % 0.2 % (0.0-1.0); EOS % 0.3 % (0.0-3.0); HEMATOCRIT 44.2 % (42.0-52.0); HEMOGLOBIN 14.7 g/dl (13.5-17.5); LYMPH # 1.1 10^3/uL (1.5-5.0); LYMPH % 9.3 % (24.0-44.0); MEAN CORPUSCULAR HEMOGLOBIN 30.4 pg (27.0-33.0); MEAN CORPUSCULAR HGB CONC 33.3 g/dl (32.0-36.5); MEAN CORPUSCULAR VOLUME 91.3 fl (80.0-96.0); MONO # 0.8 10^3/uL (0.0-0.8); MONO % 6.8 % (2.0-8.0); PLATELET COUNT, AUTOMATED 261 10^3/uL (150-450); RED BLOOD COUNT 4.84 10^6/uL (4.30-6.10); WHITE BLOOD COUNT 12.1 10^3/uL (4.0-10.0)
[2021-03-18 15:28] LABS: BILIRUBIN,DIRECT 0.1 MG/DL (0.0-0.2); BILIRUBIN,TOTAL 0.4 MG/DL (0.2-1.0); THYROID STIMULATING HORMONE 1.28 uIU/ML (0.358-3.740); TOTAL PROTEIN 6.7 GM/DL (6.4-8.2)
[2021-03-18 15:29] LABS: RSV AMPLIFICATION NEGATIVE (NEGATIVE)
[2021-03-18] MEDS ORDERED: ISOVUE-370 76% 100ML VIAL As Ordered ONE (15:32)
--- NOTE | 2021-03-18 15:58 | REP ---
INDICATION: sob r/o pe COMPARISON: 01/16/2020 TECHNIQUE: Axial contrast enhanced images from the thoracic inlet to the upper abdomen using pulmonary embolus technique with multiplanar re-formations. 75 ml Isovue 370 intravenous contrast material administered without complication. This CT examination was performed using the following dose reduction techniques: Automated exposure control, adjustment of mA and/or kv according to the patient's size, and use of iterative reconstruction technique. FINDINGS: Satisfactory enhancement of the pulmonary vasculature is achieved and no filling defects are identified to suggest pulmonary embolus. The lung bagley demonstrate subtle scattered acute "tree in bud" opacities primarily noted to the bilateral lower lobes, right middle lobe and basilar right upper lobe which suggest a subtle acute multifocal pneumonia. Chronic underlying interstitial changes and scattered calcified granulomata identified. Further evaluation of the mediastinum demonstrates atherosclerotic changes to the thoracic aorta and coronary arteries without aortic aneurysm or dissection. No cardiomegaly or pericardial effusion. No significant adenopathy. Thyroid gland is grossly normal. Surrounding musculoskeletal structures demonstrate age-related osteopenia and degenerative changes. Limited upper abdomen demonstrates stable 2.5 cm cyst in the mid pancreatic body which appears similar but slightly increased in size when compared with abdominal CT examinations through 2014. IMPRESSION: No evidence for pulmonary embolus. Very subtle acute multifocal infiltrates consistent with pneumonia. <Electronically signed by Chente Yu > 03/18/21 [id number]
[2021-03-18] MEDS ORDERED: cefTRIAXone SOD 1 GM in D5W MINI-BAG PLUS 50 ML IV ONE (16:20)
[2021-03-18] MEDS ORDERED: AZITHROMYCIN INJ 500 MG, VIAL MATE ADAPTER 1 EACH in NS 250 ML IV ONE (16:20)
[2021-03-18] MEDS ORDERED: ACETAMINOPHEN TAB 650MG DOSE (2X325MG) PO PRN (16:55)
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
[2021-03-18] MEDS ORDERED: [UNRECOGNIZED DRUG - CODE] PO (17:25)
[2021-03-18] MEDS: predniSONE 20 MG TAB PO SCH (18:13)
[2021-03-18] MEDS: FUROSEMIDE 40MG/4ML VIAL (J1940) IV SCH (18:14)
[2021-03-18 20:25] VITALS: BP 132/81
[2021-03-18] MEDS ORDERED: ENOXAPARIN 40MG/0.4ML SYRINGE (J1650 PER 10MG) SC SCH (21:00)
[2021-03-18] MEDS: IPRATROPIUM 0.5MG/ALBUTEROL 2.5MG INH SOL UD 3ML (DUONEB) INH SCH (21:15)
[2021-03-19] MEDS: IPRATROPIUM 0.5MG/ALBUTEROL 2.5MG INH SOL UD 3ML (DUONEB) INH SCH ×5 (00:07→15:40)
[2021-03-19 06:16] LABS: HEMATOCRIT 43.4 % (42.0-52.0); HEMOGLOBIN 14.4 g/dl (13.5-17.5); MEAN CORPUSCULAR HEMOGLOBIN 30.2 pg (27.0-33.0); MEAN CORPUSCULAR HGB CONC 33.2 g/dl (32.0-36.5); PLATELET COUNT, AUTOMATED 247 10^3/uL (150-450); RED BLOOD COUNT 4.77 10^6/uL (4.30-6.10)
[2021-03-19 06:22] VITALS: BP 121/80
[2021-03-19] MEDS: FUROSEMIDE 40MG/4ML VIAL (J1940) IV SCH (06:23)
[2021-03-19 07:15] LABS: ALBUMIN 2.9 GM/DL (3.2-5.2); ALT/SGPT 20 U/L (12-78); BILIRUBIN,TOTAL 0.3 MG/DL (0.2-1.0); BLOOD UREA NITROGEN 17 MG/DL (7-18); CALCIUM LEVEL 8.3 MG/DL (8.8-10.2); CARBON DIOXIDE LEVEL 27 MEQ/L (21-32); CHLORIDE LEVEL 103 MEQ/L (98-107); CREATININE FOR GFR 0.97 MG/DL (0.70-1.30); GLOMERULAR FILTRATION RATE > 60.0 (>42); GLUCOSE, FASTING 164 MG/DL (70-100); POTASSIUM SERUM 3.9 MEQ/L (3.5-5.1); SODIUM LEVEL 140 MEQ/L (136-145); TOTAL PROTEIN 6.6 GM/DL (6.4-8.2)
--- NOTE | 2021-03-19 08:52 | ECGEPIP ---
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
[2021-03-19] MEDS ORDERED: AUGM875T28 PO (09:36)
[2021-03-19] MEDS ORDERED: LASI20TA3 PO (09:36)
[2021-03-19] MEDS ORDERED: AZIT500T5 PO (09:36)
[2021-03-19] MEDS ORDERED: PRED20TA PO (09:36)
[2021-03-19] MEDS: predniSONE 20 MG TAB PO SCH (09:39)
--- NOTE | 2021-03-19 12:11 | DS.PDOC ---
Discharge Summary General Date of Admission March 18, 2021 at 16:54 Date of Discharge 03/19/21 Discharge Summary PROCEDURES PERFORMED DURING STAY: [None]. ADMITTING DIAGNOSES: Pneumonia CHF exacerbation Shortness of breath DISCHARGE DIAGNOSES: Pneumonia CHF exacerbation Shortness of breath COMPLICATIONS/CHIEF COMPLAINT: Pneumonia. HISTORY OF PRESENT ILLNESS: Patient is 76 years old male with past medical history of prostate cancer, rectosigmoid cancer, urinary incontinence presented to the hospital with cough and yellowish sputum. Patient stated that he has been having cough with yellowish sputum for past 5-7 days. Yesterday he reported fever of 100.4. Patient reported that he doesn't have any chills or fever right now. Also patient reported increased shortness of breath on exertion. In ER emerita ent was found to have leukocytosis of 12.1, lactic acid of 1.3, BNP 986. Chest CT was done and showed No evidence for pulmonary embolus. Very subtle acute multifocal infiltrates consistent with pneumonia HOSPITAL COURSE: During the hospital stay the following issues addressed (1) Pneumonia Community acquired pneumonia Patient received Azithromycin IV, ceftriaxone IV Prednisone by mouth Incentive spirometry (2) diastolic CHF exacerbation Patient developed shortness of breath most likely secondary to commit acquired pneumonia superimposed with acute CHF exacerbation BNP elevated to 986 Lasix IV Echo pending report (3) Shortness of breath See above DISCHARGE MEDICATIONS: Please see below. ALLERGIES: Please see below. PHYSICAL EXAMINATION ON DISCHARGE: VITAL SIGNS: Please see below. Physical Examination General Exam: Positive: Alert, Cooperative Eye Exam: Positive: PERRLA ENT Exam: Positive: Atraumatic Neck Exam: Positive: Supple; Negative: JVD Chest Exam: Positive: Rales, Rhonchi, Wheezing; Negative: Clear to auscultation Heart Exam: Positive: Rate Normal Telemetry: Positive: No significant arrhythmia Abdomen Exam: Positive: Normal bowel sounds Extremity Exam: Negative: Clubbing, Cyanosis Skin Exam: Positive: Nl turgor and temperature Neuro Exam: Positive: Normal Gait, Strength at 5/5 X4 ext Psych Exam: Positive: Mental status NL LABORATORY DATA: Please see below. IMAGING: [facility] NAME: AMARI LOPEZ DATE OF : 1945 AGE: 76 SEX: M REPORT #: [id number] ROOM: ED TECHNOLOGIST: SILKE DOCTOR: Annabelle Estrada MD Ordered for Date&Time: 03/18/21 1525 cc: [~ rep ct ivnm] Service Date&Time: This report is in Signed status. If this report is in a DRAFT status it has not yet been reviewed by the radiologist for accuracy. Thank you for having your radiology procedures performed at [facility] RADIOLOGY REPORT Date&Time printed: [~ rep prt dt last] [~ rep prt tm last] Page 2 of 2 [place] [address] RADIOLOGY REPORT This report is in Signed status. If this report is in a DRAFT status it has not yet been reviewed by the radiologist for accuracy. Thank you for having your radiology procedures performed at [facility] RADIOLOGY REPORT Date&Time printed: [~ rep prt dt last] [~ rep prt tm last] Page 1 of 2 INDICATION: sob r/o pe COMPARISON: 01/16/2020 TECHNIQUE: Axial contrast enhanced images from the thoracic inlet to the upper abdomen us ing pulmonary embolus technique with multiplanar re-formations. 75 ml Isovue 370 intravenous contrast material administered without complication. This CT examination was performed using the following dose reduction techniques: Automated exposure control, adjustment of mA and/or kv according to the patient's size, and use of iterative reconstruction technique. FINDINGS: Satisfactory enhancement of the pulmonary vasculature is achieved and no filling defects are identified to suggest pulmonary embolus. The lung bagley demonstrate subtle scattered acute "tree in bud" opacities primarily noted to the bilateral lower lobes, right middle lobe and basilar right upper lobe which suggest a subtle acute multifocal pneumonia. Chronic underlying interstitial changes and scattered calcified granulomata identified. Further evaluation of the mediastinum demonstrates atherosclerotic changes to th e thoracic aorta and coronary arteries without aortic aneurysm or dissection. No cardiomegaly or pericardial effusion. No significant adenopathy. Thyroid gland is grossly normal. Surrounding musculoskeletal structures demonstrate age-related osteopenia and degenerative changes. Limited upper abdomen demonstrates stable 2.5 cm cyst in the mid pancreatic body which appears similar but slightly increased in size when compared with abdominal CT examinations through 2013. IMPRESSION: No evidence for pulmonary embolus. Very subtle acute multifocal infiltrates consistent with pneumonia. <Electronically signed by Chente Yu > 03/18/21 [id number] DD: Chente Yu MD 03/18/21 5590 DT: MYLA 03/18/21 1554 DS: ZACH 03/18/21 1549 03/18/21 1549 [~ rep ct labl] PROGNOSIS: Fair ACTIVITY: [As tolerated]. DIET: Cardiac DISPOSITION: Home DISCHARGE INSTRUCTIONS: Continue incentive spirometry ITEMS TO FOLLOWUP ON ON OUTPATIENT: Follow-up with PCP in 3-5 days DISCHARGE CONDITION: [Stable]. TIME SPENT ON DISCHARGE: 40 minutes. Vital Signs/I&Os Vital Signs Date Time Temp Pulse Resp B/P (MAP) Pulse Ox O2 Delivery O2 Flow Rate FiO2 03/19/21 06:22 97.7 60 18 121/80 (94) 94 Nasal Cannula 2.0 I&O- Last 24 Hours up to 6 AM 03/19/21 06:00 Intake Total 230 ml Output Total 150 ml Balance 80 ml Laboratory Data Labs 24H Laboratory Tests 2 03/18/21 14:34: Immature Granulocyte % (Auto) 0.4, Neutrophils (%) (Auto) 83.0H, Lymphocytes (%) (Auto) 9.3L, Monocytes (%) (Auto) 6.8, Eosinophils (%) (Auto) 0.3, Basophils (%) (Auto) 0.2, Neutrophils # (Auto) 10.0H, Lymphocytes # (Auto) 1.1L, Monocytes # (Auto) 0.8, Eosinophils # (Auto) 0.0, Basophils # (Auto) 0.0, Nucleated Red Blood Cells % (auto) 0.0, Blood Gas Bicarbonate Standard 23.3, Venous Blood pH 7.355, Venous Blood Partial Pressure CO2 48.0, Venous Blood Partial Pressure O2 26.3L, Venous Blood Total Carbon Dioxide 27.7, Venous Blood HCO3 26.2, Venous Blood Oxygen Saturation 48.4L, Venous Blood Base Excess 0.1, Lactic Acid Level 1.3, Total Bilirubin 0.4, Direct Bilirubin 0.1, Aspartate Amino Transf (AST/SGOT) 30, Alanine Aminotransferase (ALT/SGPT) 18, Alkaline Phosphatase 94, JX-Osy-A-Type Natriuretic Peptide 986H, Total Protein 6.7, Albumin 3.0L, Albumin/Globulin Ratio 0.8, Thyroid Stimulating Hormone (TSH) 1.280, Coronavirus (COVID-19)(PCR) NEGATIVE, Influenza Type A (RT-PCR) NEGATIVE, Influenza Type B (RT-PCR) NEGATIVE, Respiratory Syncytial Virus (PCR) NEGATIVE 03/18/21 14:41: POC Glucose (Misc Panel) 118H, POC Sodium (Misc Panel) 137, POC Potassium (Misc Panel) 3.8, POC Chloride (Misc Panel) 99, POC Total CO2 (Misc Panel) 29.0H, POC Blood Urea Nitrogen (Misc Panel 20, POC Ionized Calcium (Misc Panel) 4.6, POC Creatinine (Misc Panel) 1.1, POC Hematocrit (Misc Panel) 45.0 03/18/21 14:42: POC Troponin I (Misc) 0.01 03/19/21 06:00: Nucleated Red Blood Cells % (auto) 0.0, Total Bilirubin 0.3, Aspartate Amino Transf (AST/SGOT) 28, Alanine Aminotransferase (ALT/SGPT) 20, Alkaline Phosphatase 94, Total Protein 6.6, Albumin 2.9L, Albumin/Globulin Ratio 0.8, An ion Gap 10, Glomerular Filtration Rate > 60.0, Calcium Level 8.3L, Magnesium Level 2.0 CBC/BMP Laboratory Tests 03/18/21 14:34 03/19/21 06:00 Microbiology Microbiology 03/18/21 Gram Stain - Final, Resulted 03/18/21 Sputum Culture, Resulted Pending 03/18/21 Blood Culture, Received Pending 03/18/21 Blood Culture, Received Pending Discharge Medications Scheduled Amoxicillin/Potassium Clav (Augmentin 875-125 Tablet) 1 Each Tablet, 1 TAB PO BID Azithromycin (Azithromycin) 500 Mg Tablet, 1 TAB PO DAILY Doxylam/PE/Dm/Acetaminophen/GG (Vicks Dayquil-Nyquil Severe Lq) 708 Ml Liquid.seq, 15 ML PO Q6H, (Reported) Furosemide (Lasix) 20 Mg Tablet, 1 TAB PO DAILY Prednisone (Prednisone) 20 Mg Tablet, 20 MG PO BID Scheduled PRN Acetaminophen (Tylenol Extra Strength) 500 Mg Tablet, 500 MG PO Q6H PRN for PAIN, (Reported) Calcium Carbonate (Tums) 200 Mg Tab.chew, 1,000 MG PO DAILY PRN for HEARTBURN/INDIGESTION, (Reported) Naproxen Sodium (Naproxen Sodium) 220 Mg Capsule, 220 MG PO BID PRN for pain, (Reported) Allergies Coded Allergies: No Known Allergies (Unverified , 07/21/20) KIKO YAO DO March 19, 2021 12:11
[2021-03-19 14:00] VITALS: BP 146/73
[2021-03-19] MEDS ORDERED: cefTRIAXone SOD 2 GM in D5W MINI-BAG PLUS 50 ML IV SCH (16:00)
[2021-03-19] MEDS ORDERED: AZITHROMYCIN INJ 500 MG, VIAL MATE ADAPTER 1 EACH in NS 250 ML IV SCH (17:00)
--- NOTE | 2021-03-22 09:51 | ECHO ---
ECHOCARDIOGRAM DATE OF PROCEDURE: 03/19/2021 Age: 71 Gender: Male Height: 65 inches Weight: 190 pounds Body surface area: 1.94 m2 PATIENT LOCATION: Inpatient [address] [place] [address], Room 5142. REFERRING PHYSICIAN: Jone Machado DO. INDICATION: Shortness of breath/congestive heart failure (CHF). MEASUREMENTS: 2D Measurements: RV 4.7 cm LV 4.6 cm Septum 1.0 cm Posterior wall 1.0 cm Aortic Root 3.5 cm Ascending aorta 3.7 cm LA 4.3 cm LVEF 75% Doppler Measurements: AV 2.3 m/s LVOT 1.14 m/s Mean AV gradient 12 mmHg Dimensionless index 0.51 MV-E 65, A 51, E/A ratio 1.3 Early mitral deceleration time 235 msec E prime medial 6.5, A prime medial 12.6, E prime lateral 7.9 Average E/E prime ratio 9/PCWP - 13 mmHg PV 0.93 m/s Pulmonary artery acceleration time 92 msec RVSP 56 mmHg IVC 1.5 cm COMMENTS: Normal sinus rhythm without intraventricular conduction disturbance. M-mode and two-dimensional echocardiography was performed with pulse, continuous wave, color flow, and tissue Doppler studies. Normal left ventricular size, wall thickness, and hyperkinetic wall motion. Mildly dilated left atrium with grade 2 LV diastolic dysfunction, but currently normal estimated mean left atrial pressure. [id number]-[id number] dilated right heart chambers with degree of right ventricular hypokinesis and Doppler evidence of at least moderate pulmonary hypertension. Normal IVC size and collapse against an elevated central venous pressure at this time. Normal aortic dimensions. Suspected bicuspid aortic valve with commisures at 5 and 11 o'clock, but seemingly adequate cusp separation and no significant aortic stenosis. No apparent insufficiency. Normal appearing mitral valve and excursion with no posterior systolic buckling. Very mild mitral insufficiency. Normal appearing tricuspid valve with at least moderate tricuspid insufficiency. No apparent intracardiac mass or pericardial effusion. MTDD
== END 2021-03-19 13:53 | disposition home or self-care (01) ==
LOC: M ED 13:34 → M ED INP 16:54 → ENRESERV 19:24 → M MS5PR 20:21
PROVIDERS: ADMIT Internal Medicine; ATTEND Internal Medicine
DX: J13 Pneumonia due to Streptococcus pneumoniae (principal); I50.33 Acute on chronic diastolic (congestive) heart failure; R06.02 Shortness of breath; Z79.52 Long term (current) use of systemic steroids; Z79.899 Other long term (current) drug therapy; Z85.46 Personal history of malignant neoplasm of prostate; Z85.048 Personal history of other malignant neoplasm of rectum, rectosigmoid junction, and anus; R32 Unspecified urinary incontinence
CPT/HCPCS: 36415; 71045; 71275; 80047; 80053; 80076; 82803; 83605; 83735; 83880; 84443; 84484; 85025; 85027; 87040; 87070; 87077; 87186; 87205; 87631; 93005; 93041; 93306; 94640; 96365; 96367; 96372; 96375; 96376; 99285; G0378; J0456; J0696; J1650; J1940; J7512; Q9967

== ENCOUNTER → 2021-07-04 | Outpatient (CLI) | payer MEDICARE ==
[~2021-07-04] MED LIST changes: +AUGM875T28 PO; +AZIT500T5 PO; +GASTROGRAFIN SOLUTION 30ML (Q9963) As Ordered ONE; +ISOVUE-370 76% 100ML VIAL As Ordered ONE; +LASI20TA3 PO; +NAPR220C23 PO; +PRED20TA PO; +[UNRECOGNIZED DRUG - CODE] PO
--- NOTE | 2021-07-04 13:26 | REP ---
INDICATION: COLON CA COMPARISON: Multiple the latest 03/18/2021 CT angio of the chest TECHNIQUE: Standard helical technique after the intravenous administration of 100 cc Isovue 370 FINDINGS: The mediastinum and pulmonary purvi are stable. There is no evidence of a mass or adenopathy. There are no pleural or pericardial effusions. There is no change in the imaged osseous structures. Evaluation of the lung bagley shows a tiny right middle lobe nodule which has been stable for years. There is an incidental calcified granuloma in the right lower lobe. There are 3 incidental calcified granulomas in the left lower lobe and there is an incidental calcified granuloma in the left upper lobe. There are 2 tiny noncalcified nodules in the left lower lobe which are unchanged. No new abnormal nodules, masses, or opacities have developed. IMPRESSION: Stable CT findings as described above. There is no evidence of acute disease. <Electronically signed by Yovany Lizama > 07/04/21 [id number]
--- NOTE | 2021-07-04 13:51 | REP ---
INDICATION: COLON CA. COMPARISON: Multiple the latest 07/01/2020 TECHNIQUE: Standard helical technique after the intravenous administration of 100 cc Isovue 370 and oral bowel preparatory contrast. FINDINGS: The liver, gallbladder, spleen, adrenal glands, and kidneys are unchanged. There is a right renal cyst status quo. The cyst seen previously within the pancreatic neck region which measured 1.9 cm on the prior exam today measures 3.2 cm but is otherwise unchanged. Its margins remain smooth and it has no enhancing characteristics. There is no intrapancreatic ductal dilatation. The abdominal aorta and para-aortic regions are within normal limits and unchanged. There is no significant change in appearance of the bowel loops or the mesenteries. There is no evidence of free fluid or free air. No mass or adenopathy has developed. The reservoir for the implanted penile device seen in the left lower quadrant is unchanged. Bone window technique throughout the examination shows no evidence of significant change. There are advanced spinal degenerative changes with hip, pubic symphysis, and sacroiliac joint degenerative changes which are also rather advanced but stable in appearance. IMPRESSION: The pancreatic cyst has increased in size as described above. No suspicious characteristics have developed by the CT exam. Other chronic changes as described above. There is no evidence of acute disease. <Electronically signed by Yovany Lizama > 07/04/21 [id number]
== END ==
LOC: M RAD 10:57
PROVIDERS: ATTEND Internal Medicine Hematology & Oncology
DX: C18.9 Malignant neoplasm of colon, unspecified (principal); N28.1 Cyst of kidney, acquired; K86.2 Cyst of pancreas; R91.8 Other nonspecific abnormal finding of lung field; J84.10 Pulmonary fibrosis, unspecified
CPT/HCPCS: 71260; 74177; Q9963; Q9967

== ENCOUNTER 2021-09-01 21:06 | Emergency (ER) | payer MEDICARE ==
[~2021-09-01] VITALS: Ht 170.2 cm; Wt 92.3 kg
[~2021-09-01 21:06] MED LIST changes: -GASTROGRAFIN SOLUTION 30ML (Q9963) As Ordered ONE; -ISOVUE-370 76% 100ML VIAL As Ordered ONE
[2021-09-02 00:45] VITALS: BP 174/89
== END 2021-09-02 03:23 | disposition left against medical advice (07) ==
LOC: M ED 21:06
DX: Z53.21 Procedure and treatment not carried out due to patient leaving prior to being seen by health care provider (principal)

== ENCOUNTER → 2022-01-06 | Outpatient (CLI) | payer MEDICARE ==
[~2022-01-06] MED LIST changes: +GASTROGRAFIN SOLUTION 30ML (Q9963) As Ordered ONE; +ISOVUE-370 76% 100ML VIAL As Ordered ONE
== END ==
LOC: M RAD 10:58
PROVIDERS: ATTEND Internal Medicine Hematology & Oncology
DX: Z85.038 Personal history of other malignant neoplasm of large intestine (principal); N28.1 Cyst of kidney, acquired; K86.2 Cyst of pancreas; J84.10 Pulmonary fibrosis, unspecified; R91.8 Other nonspecific abnormal finding of lung field
CPT/HCPCS: 71260; 74177; Q9963; Q9967

== ENCOUNTER → 2022-01-19 | Outpatient (CLI) | payer MEDICARE ==
[~2022-01-19] MED LIST changes: -GASTROGRAFIN SOLUTION 30ML (Q9963) As Ordered ONE; -ISOVUE-370 76% 100ML VIAL As Ordered ONE
== END ==
LOC: M LABSMTC 09:53
PROVIDERS: ATTEND Anesthesiology
DX: Z01.812 Encounter for preprocedural laboratory examination (principal); Z20.822 Contact with and (suspected) exposure to COVID-19

== ENCOUNTER 2022-01-24 09:51 | Day surgery (SDC) | payer MEDICARE ==
[~2022-01-24] VITALS: Ht 165.1 cm; Wt 84.7 kg
[~2022-01-24 09:51] MED LIST changes: +NS 1,000 ML IV ONE
[2022-01-24] MEDS ORDERED: propofoL 200 MG/20 ML VIAL As Ordered ONE (11:56)
[2022-01-24] MEDS ORDERED: LIDOCAINE 2% 100MG/5ML SDV (FOR ANES.) As Ordered ONE (11:56)
[2022-01-24 12:15] VITALS: BP 140/92
== END 2022-01-24 12:45 | disposition home or self-care (01) ==
LOC: M OPP 09:51
PROVIDERS: ATTEND Surgery
DX: Z12.11 Encounter for screening for malignant neoplasm of colon (principal); Z85.038 Personal history of other malignant neoplasm of large intestine; K57.30 Diverticulosis of large intestine without perforation or abscess without bleeding; K64.8 Other hemorrhoids; Z98.0 Intestinal bypass and anastomosis status; Z85.46 Personal history of malignant neoplasm of prostate; Z80.42 Family history of malignant neoplasm of prostate; Z80.1 Family history of malignant neoplasm of trachea, bronchus and lung; Z88.2 Allergy status to sulfonamides

== ENCOUNTER → 2023-01-04 | Outpatient (CLI) | payer MEDICARE ==
[~2023-01-04] MED LIST changes: +GASTROGRAFIN SOLUTION 30ML As Ordered ONE; +ISOVUE-370 76% 100ML VIAL As Ordered ONE; -NS 1,000 ML IV ONE
== END ==
LOC: M RAD 11:42
PROVIDERS: ATTEND Internal Medicine Medical Oncology
DX: Z85.038 Personal history of other malignant neoplasm of large intestine (principal); K44.9 Diaphragmatic hernia without obstruction or gangrene; K76.0 Fatty (change of) liver, not elsewhere classified; R16.0 Hepatomegaly, not elsewhere classified; K76.89 Other specified diseases of liver; K86.2 Cyst of pancreas; N28.1 Cyst of kidney, acquired
CPT/HCPCS: 71260; 74177; Q9963; Q9967

== ENCOUNTER → 2023-02-08 | Outpatient (CLI) | payer MEDICARE ==
[~2023-02-08] MED LIST changes: -GASTROGRAFIN SOLUTION 30ML As Ordered ONE; -ISOVUE-370 76% 100ML VIAL As Ordered ONE; +PROHANCE 279.3MG/ML 15ML VIAL ONE
== END ==
LOC: M PLAIMG 15:12
PROVIDERS: ATTEND Internal Medicine Medical Oncology
DX: K86.2 Cyst of pancreas (principal)
CPT/HCPCS: 74183; A9576

== ENCOUNTER 2023-09-05 09:12 | Day surgery (SDC) | payer MEDICARE ==
[~2023-09-05] VITALS: Ht 167.6 cm; Wt 77.1 kg
[~2023-09-05 09:12] MED LIST changes: +BSS IRRIG/VANCO(10MG)/TOBRA(5MG)/EPINEPH(1:1000-0.5CC)500ML BAG-ORONLY IR ONE; +CEFUROXIME 1MG/0.1ML INTRACAMERAL INJ As Ordered ONE; +CYCLOPENTOLATE 1% OPHTH SOLN 2ML BTL OD SCH; +LIDOCAINE 1% SDV 5ML VIAL As Ordered ONE; +LIDOCAINE 3.5 % 1ML OPHTH TOPICAL GEL OU ONE; +MIDAZOLAM INJ 2MG/2ML VIAL As Ordered ONE; +OFLOXACIN 0.3 % (OCUFLOX) OPTH SOL 5ML OD ONE; +PHENYLEPHRINE 10% OPHTH SOL 5ML OD PRN; +PHENYLEPHRINE 2.5% OPHTH SOL 2ML OD SCH; +PRES10CA2 PO; -PROHANCE 279.3MG/ML 15ML VIAL ONE; +TROPICAMIDE 1% OPHTH SOLN 15ML OD SCH; +fentaNYL 100 MCG/2 ML INJECTION As Ordered ONE
[2023-09-05 10:28] VITALS: TEMP 97.2; O2SAT 93
[2023-09-05 10:35] VITALS: BP 159/81
== END 2023-09-05 10:39 | disposition home or self-care (01) ==
LOC: M SDC 09:12
PROVIDERS: ATTEND Ophthalmology
DX: H25.11 Age-related nuclear cataract, right eye (principal); K21.9 Gastro-esophageal reflux disease without esophagitis; Z85.038 Personal history of other malignant neoplasm of large intestine; F41.9 Anxiety disorder, unspecified; F32.A Depression, unspecified; N40.0 Benign prostatic hyperplasia without lower urinary tract symptoms; Z88.2 Allergy status to sulfonamides; Z79.899 Other long term (current) drug therapy
CPT/HCPCS: 66984; 92015; J0697; J2250; J3010; V2788

== ENCOUNTER → 2024-01-23 | Outpatient (CLI) | payer MEDICARE ==
[~2024-01-23] MED LIST changes: -BSS IRRIG/VANCO(10MG)/TOBRA(5MG)/EPINEPH(1:1000-0.5CC)500ML BAG-ORONLY IR ONE; -CEFUROXIME 1MG/0.1ML INTRACAMERAL INJ As Ordered ONE; +CIPR0.3S37; -CYCLOPENTOLATE 1% OPHTH SOLN 2ML BTL OD SCH; -LIDOCAINE 1% SDV 5ML VIAL As Ordered ONE; -LIDOCAINE 3.5 % 1ML OPHTH TOPICAL GEL OU ONE; -MIDAZOLAM INJ 2MG/2ML VIAL As Ordered ONE; -OFLOXACIN 0.3 % (OCUFLOX) OPTH SOL 5ML OD ONE; -PHENYLEPHRINE 10% OPHTH SOL 5ML OD PRN; -PHENYLEPHRINE 2.5% OPHTH SOL 2ML OD SCH; +PREDOPD; +PROHANCE 279.3MG/ML 15ML VIAL As Ordered ONE; +TOBRSUS8; -TROPICAMIDE 1% OPHTH SOLN 15ML OD SCH; -fentaNYL 100 MCG/2 ML INJECTION As Ordered ONE
== END ==
LOC: M RAD 10:03
PROVIDERS: ATTEND Internal Medicine Medical Oncology
DX: C18.9 Malignant neoplasm of colon, unspecified (principal); K86.2 Cyst of pancreas; N28.1 Cyst of kidney, acquired

== ENCOUNTER → 2024-01-30 | Outpatient (CLI) | payer MEDICARE ==
[~2024-01-30] MED LIST changes: +ISOVUE-370 76% 100ML VIAL As Ordered ONE; -PROHANCE 279.3MG/ML 15ML VIAL As Ordered ONE
== END ==
LOC: M RAD 10:55
PROVIDERS: ATTEND Internal Medicine Medical Oncology
DX: C18.9 Malignant neoplasm of colon, unspecified (principal); I70.0 Atherosclerosis of aorta; I25.10 Atherosclerotic heart disease of native coronary artery without angina pectoris; M85.89 Other specified disorders of bone density and structure, multiple sites; M47.9 Spondylosis, unspecified; K86.2 Cyst of pancreas
CPT/HCPCS: 71260; Q9967

== ENCOUNTER → 2025-02-09 | Outpatient (CLI) | payer MEDICARE ==
[~2025-02-09] MED LIST changes: +PROHANCE 279.3MG/ML 15ML VIAL As Ordered ONE
== END ==
LOC: M RAD 14:38
PROVIDERS: ATTEND Nurse Practitioner
DX: C18.9 Malignant neoplasm of colon, unspecified (principal)
CPT/HCPCS: 71260; 74183; A9576; Q9967